=== PATIENT | male | born 1985 | race Caucasian/White ===

== ENCOUNTER 2020-06-23 14:16 | Outpatient (REF) | payer OTHER, SELFPAY | END 2020-06-23 14:17 | disposition home or self-care (01) | LOC: HO.LAB 14:16 | PROVIDERS: Visit Provider Internal Medicine | DX: Z20.828 Contact with and (suspected) exposure to other viral communicable diseases (principal) | CPT/HCPCS: C9803; U0003 ==

== ENCOUNTER 2020-07-09 12:30 | Emergency (ER) | payer OTHER, SELFPAY ==
[2020-07-09 12:35] VITALS: BP 119/66; PULSE 66; RESP 16; TEMP 36.7; O2SAT 98; BMI 27.8
[2020-07-09] MEDS: Lidocaine HCl 1 % MPF 5 ML VIAL SUBCUT (13:49)
--- NOTE | 2020-07-09 13:56 | ED_ITS ---
HPI - Male Genitourinary General Chief complaint: Urogenital-Male Stated complaint: recheck std,also ingrown hair Time Seen by Provider: 07/09/20 12:35 Source: patient Mode of arrival: ambulatory Limitations: no limitations History of Present Illness HPI Narrative: 34-year-old male presenting to the ED with complaints of ingrown hair for the past few weeks that he is unable to get out at the left groin area with an abscess. Patient also requesting to be tested for STDs although he denies any symptoms and denies any exposure to STDs. Denies any additional complaints or concerns at this time. Related Data Previous Rx's Medication Instructions Recorded cephalexin [Keflex] 500 mg PO Q6H 10 Days #40 cap 07/09/20 doxycycline monohydrate 100 mg PO BID 10 Days #20 cap 07/09/20 ibuprofen 800 mg PO Q8H PRN #14 tab 07/09/20 Allergies Allergy/AdvReac Type Severity Reaction Status Date / Time No Known Allergies Allergy Verified 07/09/20 12:38 [No Known Allergies*] Review of Systems Review of Systems: Constitutional : No Weight loss, No Fever, No Chills, No Night Sweats, No Fatigue, No Malaise ENT/Mouth : No Hearing loss, No Ear Pain, No Nasal Congestion, No Sinus Pain, No Hoarseness, No sore throat, No Rhinorrhea, No Swallowing Difficulty Eyes: No Eye Pain, No Swelling, No Redness, No Foreign Body, No Discharge, No Vision Changes Cardiovascular : No Chest Pain, No SOB, No Dyspnea on Exertion, No Orthopnea, No Edema, No Palpitations Respiratory : No Cough, No Sputum, No Wheezing, No Smoke Exposure, No Dyspnea Gastrointestinal : No Nausea, No Vomiting, No Diarrhea, No Constipation, No abdominal Pain, No Hematochezia, No Melena Genitourinary : no irregular bleeding, No Dysuria, No Urinary Frequency, No Hematuria, No Urinary Incontinence, No Urgency, No Flank Pain, No Urinary Flow Changes, No Hesitancy Musculoskeletal : No joint pain, No Myalgias, No Joint Swelling Skin : + ingrown hair/abscess, No Skin Lesions, No rash Neuro : No Weakness Yes all other systems are reviewed and are negative PMFSH Past Medical History Attestation statement: The following information was validated with the patient. Medical History Patient denies medical problems Social History Social History Advance Directives: No Advance Directives Information Provided: Yes Physical Exam Vital Signs: Vital Signs: Last Vital Signs Temp 98.0 F 07/09/20 12:35 Pulse 66 07/09/20 12:35 Resp 16 07/09/20 12:35 BP 119/66 07/09/20 12:35 Pulse Ox 98 07/09/20 12:35 Body Mass Index 27.8 vital signs have been reviewed as normal and appeared to be correct. Blood pressure normal. Heart rate normal. Respiration rate normal. Temperature normal. Oxygen saturation normal. Appearance: Alert. Oriented X3. No acute distress. Head: Normal external exam. Normocephalic. Atraumatic. Eyes: PERRLA. EOMI. Conjunctiva and sclera normal. Eyelids normal. ENT: Pharynx normal. Uvula midline. Moist mucous membranes. Neck: Normal inspection. Neck supple. FROM. No adenopathy. No meningeal signs. CVS: Normal heart rate and rhythm. Heart sound normal. No murmurs noted. Pulses normal throughout. Respiratory: No respiratory distress. Painless inspiration. Breath sounds normal. No wheezes/rales/rhonchi noted. Chest nontender. No accessory muscle usage noted or decreased air movement noted. Back: Full range of motion noted. Skin: To the left suprapubic groin area there is the 1 cm abscess possible ingrown hair with mild surrounding erythema no streaking or induration or foreign bodies noted at this time. No drainage noted. Skin warm and dry. Normal skin color. Normal skin turgor. No rashes/lacerations noted. Extremities: Extremities exhibit normal range of motion. Extremities nontender. Neuro: Oriented X 3. No motor deficit. No sensory deficit. Reflexes normal. Course Course Course Narrative: Patient now status post I&D of abscess/ingrown hair although mild bloody discharge no purulent discharge noted. No complications. Patient tolerated procedure well. Patient requesting to be tested for STDs therefore will test for gonorrhea/chlamydia and syphilis. He does not have any lesions therefore no indication to test for herpes. I instructed him to follow up with [facility] for any additional testing for HIV as they have proper follow-up. P atient reports that he does not have any symptoms and just wants to be tested to prove to his girlfriend that he does not have any STDs therefore no antibiotics for STDs given at this time. Will DC home with antibiotics for abscess/cellulitis and instructions to return if any new or worsening symptoms. Patient understands agrees the plan. Procedures Abscess I/D Side (if applicable): left Local Anesthetic: lidocaine 1% Amount of anesthesia used (mL): 3 Technique: needle aspiration and incised with blade Amount of fluid expressed (mL): 2 Sent for culture/gram staining?: No Irrigation: Yes Packing used?: none Complications: bleeding (pea size amounts) [facility] - Male Genitourinary Medical Records Attestation: I reviewed the patient's medical records. Discharge Plan Discharge Clinical Impression: Cellulitis, Abscess, Screen for STD (sexually transmitted disease) Patient Disposition: Home, Self-Care Instructions: Sexually Transmitted Diseases (ED), Male Condom Use (ED), Cellulitis (ED), Abscess (ED), Safe Sex Practices for Adolescents (ED) Prescriptions: New ibuprofen 800 mg tablet 800 mg PO Q8H PRN (Reason: pain) Qty: 14 RF: 0 doxycycline monohydrate 100 mg capsule 100 mg PO BID 10 Days Qty: 20 RF: 0 cephalexin [Keflex] 500 mg capsule 500 mg PO Q6H 10 Days Qty: 40 RF: 0 Referrals: Physician,Unknown [Primary Care Provider] - 2 days (your pcp) Print Language: Tamazight
[2020-07-10 10:46] LABS: CT PCR NOT DETECTED (Not Detect.); NG PCR NOT DETECTED (Not Detect.)
[2020-07-11 04:09] LABS: Syphilis Screen Nonreactive (Nonreactive)
== END 2020-07-09 14:11 | disposition home or self-care (01) ==
PROVIDERS: Physician Assistant Medical; Emergency Provider Internal Medicine
DX: L02.214 Cutaneous abscess of groin (principal); L03.314 Cellulitis of groin; Z20.2 Contact with and (suspected) exposure to infections with a predominantly sexual mode of transmission
CPT/HCPCS: 10060; 36415; 86780; 87491; 87591; 99283

== ENCOUNTER 2020-07-18 16:39 | Emergency (ER) | payer OTHER, SELFPAY ==
[2020-07-18 17:15] VITALS: BP 122/98; PULSE 79; RESP 18; TEMP 37.4; O2SAT 99; BMI 27.1
--- NOTE | 2020-07-18 17:43 | ED.NAVMDI ---
HPI - Nausea/Vomiting/Diarrhea General Chief complaint: Nausea/Vomiting/Diarrhea Stated complaint: Vomiting Time Seen by Provider: 07/18/20 17:43 Source: patient Mode of arrival: ambulatory Limitations: no limitations History of Present Illness HPI Narrative: 34 y/o male presenting with N/V/D for the last 1 week that occurs immediately after taking Keflex. He was prescribed it for an ingrown hair in his left groin. He also reports severe throat pain. No voice changes or difficulty handling his secretions. No abdominal pain. No fevers. MD elicited complaint: nausea, vomiting, diarrhea and other (sore thoat) Onset (ago): week(s) (1) Description of vomiting: food contents Description of diarrhea: semi-solid Associated nausea: Yes Associated abdominal pain: No Location of pain: none Severity: moderate Quality: cramping Exacerbating factors: medication Relieving factors: none Context: recent antibiotic use Associated symptoms: denies other symptoms Related Data Previous Rx's Medication Instructions Recorded cephalexin [Keflex] 500 mg PO Q6H 10 Days #40 cap 07/09/20 doxycycline monohydrate 100 mg PO BID 10 Days #20 cap 07/09/20 ibuprofen 800 mg PO Q8H PRN #14 tab 07/09/20 amoxicillin 500 mg PO BID #20 tab 07/18/20 ondansetron HCl [Zofran] 4 mg PO Q8H PRN #10 tab 07/18/20 Allergies Allergy/AdvReac Type Severity Reaction Status Date / Time No Known Allergies Allergy Verified 07/18/20 17:15 [No Known Allergies*] Review of Systems Review of Systems: Constitutional: No Fever, No Chills ENT/Mouth: + sore throat, No Rhinorrhea, No Swallowing Difficulty Cardiovascular: No Chest Pain, No SOB Respiratory: No Cough, No Sputum Gastrointestinal: + Nausea, + Vomiting, + Diarrhea, No abdominal Pain, No Hematochezia, No Melena Musculoskeletal: No joint pain, No Myalgias Neuro: No Weakness, No Numbness, No Dizziness, + Headache Heme/Lymph: No Lymphadenopathy Gastrointestinal: Gastrointestinal: Reports nausea PMFSH Past Medical History Medical History Patient denies medical problems Social History Social History Advance Directives: No Advance Directives Information Provided: No Physical Exam Vital Signs: Vital Signs: Last Vital Signs Temp 99.4 F 07/18/20 17:15 Pulse 79 07/18/20 17:15 Resp 18 07/18/20 17:15 BP 122/98 H 07/18/20 17:15 Pulse Ox 99 07/18/20 17:15 Body Mass Index 27.1 Appearance: Alert. Oriented X3. No acute distress. Eyes: normal inspection ENT: Pharynx with severe bilateral tonsillar swelling, erythema and exudates bilaterally. no appreciable peritonsillar abscess, handling secretions normally. voice normal. Neck: Normal inspection. Neck supple. CVS: Normal heart rate and rhythm. Pulses normal. Respiratory: No respiratory distress. Breath sounds normal. Skin: Skin warm and dry. Normal skin color. Normal skin turgor. No rashes. Neuro: Oriented X 3. Non-focal. Course Course Course Narrative: 34 y/o presenting with N/V/D after taking Keflex, now with more throat pain. Exam consistent with strep pharyngitis. Will treat accordingly. No peritontsillar abscess. Not septic appearing. Stable for discharge. Critical Care Time Critical Care Time Critical Care Time: No Discharge Plan Discharge Clinical Impression: Acute streptococcal pharyngitis Patient Disposition: Home, Self-Care Instructions: Strep Throat (ED) Additional Instructions: Your exam is consistent with Strep throat. Stop taking the Keflex medication given your intolerance to it. Start taking the new antibiotic that was sent to your pharmacy. If you develop diarrhea with this antibiotic, take Imodium as needed. Use warm salt water gargles several times per day. Use over the counter Chloraseptic [place] or Cepacol lozenges for sore throat. Take motrin and/or tylenol as needed for pain. Follow up with your doctor as needed. Prescriptions: New amoxicillin 500 mg tablet 500 mg PO BID Qty: 20 RF: 0 ondansetron HCl [Zofran] 4 mg tablet 4 mg PO Q8H PRN (Reason: nausea and vomiting) Qty: 10 RF: 0 No Action ibuprofen 800 mg tablet 800 mg PO Q8H PRN (Reason: pain) Qty: 14 RF: 0 doxycycline monohydrate 100 mg capsule 100 mg PO BID 10 Days Qty: 20 RF: 0 cephalexin [Keflex] 500 mg capsule 500 mg PO Q6H 10 Days Qty: 40 RF: 0 Stand Alone Forms: Work/School Release
== END 2020-07-18 18:07 | disposition home or self-care (01) ==
LOC: HO.ED 17:55
PROVIDERS: Emergency Provider Emergency Medicine
DX: J02.0 Streptococcal pharyngitis (principal)
CPT/HCPCS: 99283

== ENCOUNTER 2020-11-30 07:36 | Outpatient (REF) | payer OTHER, SELFPAY ==
--- NOTE | ~2020-11-30 | US_ITS ---
EXAMINATION: US ABDOMEN COMPLETE CLINICAL INFORMATION: Abdominal pain. Weight loss. COMPARISON: None TECHNIQUE: Real-time imaging of the abdominal viscera. FINDINGS: PANCREAS: The pancreas appears unremarkable, without masses or ductal dilatation, with the exception of the tail which is obscured by bowel gas. ABDOMINAL AORTA: The proximal and mid segments are normal in caliber. The distal aorta is obscured by bowel gas. INFERIOR VENA CAVA: Visualized portions are normal. LIVER: The liver is normal in size. The liver contour is normal. Parenchymal echogenicity is normal. No focal hepatic lesion. There is no intrahepatic biliary duct dilatation seen. GALLBLADDER: The gallbladder is physiologically distended without evidence of stones, sludge, polyps, wall thickening or pericholecystic fluid. COMMON BILE DUCT: Normal in caliber measuring 0.6 cm in diameter. RIGHT KIDNEY: No hydronephrosis. No renal calculi or focal parenchymal lesions. The kidney measures 10.8 cm in maximum dimension. Incidental note is made of the presence of 2 renal veins as well as 2 renal arteries. LEFT KIDNEY: Normal. No hydronephrosis. No renal calculi or focal parenchymal lesions. The kidney measures 11.0 cm in maximum dimension. SPLEEN: Normal. The spleen measures 9.3 cm in maximum dimension. FREE FLUID: None. US/US abdomen complete IMPRESSION: A cause for the patient's abdominal pain and weight loss is not seen. The pancreatic tail was not visualized.
== END 2020-11-30 07:37 | disposition home or self-care (01) ==
LOC: HO.US 07:36
PROVIDERS: PCP Internal Medicine Medical Oncology; Visit Provider Internal Medicine Medical Oncology
DX: R10.84 Generalized abdominal pain (principal); R63.4 Abnormal weight loss; K25.7 Chronic gastric ulcer without hemorrhage or perforation
CPT/HCPCS: 76700

== ENCOUNTER 2021-01-28 07:27 | Outpatient (REF) | payer OTHER, SELFPAY ==
[2021-01-28 08:20] LABS: MANUAL DIFF FLAG NO
[2021-01-28 08:26] LABS: Basophils Percent Auto 0.4 % (0-2); Eosinophils Absolute Auto 0.2 X10*3/uL (0.0-0.4); Eosinophils Percent Auto 3.8 % (0-4); Hematocrit 42.3 % (42-52); Hemoglobin 13.7 g/dl (14.0-18.0); Imm Gran Abs Auto 0.03 X10*3/uL (0.00-0.03); Imm Gran Pct Auto 0.6 % (0.0-0.4); Lymphocytes Absolute Auto 2.1 X10*3/uL (1.2-4.9); Mean Corpuscular HGB Conc 32.4 g/dl (31.0-36.0); Mean Corpuscular Hemoglobin 29.3 pg (27.0-33.0); Mean Corpuscular Volume 90.6 fL (80-98); Mean Platelet Volume 11.1 fL (9.4-12.4); Monocytes Absolute Auto 0.6 X10*3/uL (0.1-1.2); Monocytes Percent Auto 11.1 % (2-11); Neutrophils Absolute Auto 2.3 X10*3/uL (2.0-8.3); Neutrophils Percent Auto 44.1 % (45-73); Platelet Count 178 X10*3/uL (160-400); Red Blood Count 4.67 X10*6/uL (4.60-5.80); Red Cell Distribution Width 12.5 % (11.0-16.0); White Blood Count 5.2 X10*3/uL (4.8-10.8)
[2021-01-28 09:01] LABS: Alanine Aminotransferase 35 U/L (0-40); Albumin Level 4.3 g/dL (3.5-5.0); Alkaline Phosphatase 93 U/L (39-117); Anion Gap 10 (12-20); Aspartate Amino Transferase 22 U/L (5-37); Bilirubin Total 0.4 mg/dL (0.0-1.0); Blood Urea Nitrogen 15 mg/dL (9-16); Calcium 9.7 mg/dL (8.4-10.2); Carbon Dioxide 28 mmol/L (22-29); Chloride 105 mmol/L (96-108); Cholesterol 197 mg/dL; Estimated Glomerular Filt Rate > 60; Glucose Random 104 mg/dL (60-115); Potassium 4.1 mmol/L (3.3-5.1); Sodium 139 mmol/L (135-145); Total Protein 7.1 g/dL (6.5-8.0)
[2021-01-30 08:12] LABS: HBc Num1 0.07 S/CO (0.00-0.79); HBsAGNum1 0.17 S/CO (0.00-0.99); Hepatitis B Core Antibody Nonreactive (Nonreactive); Hepatitis B Surface Antigen Negative (Negative); ~HepC Num1 0.25 S/CO (0.00-0.79); ~Hepatitis C Antibody Nonreactive (Nonreactive)
[2021-01-30 08:28] LABS: HBS Num1 4.23 mIU/mL (0-7.99); ~Hepatitis B Surface Antibody NONREACTIVE (Nonreactive)
== END 2021-01-28 07:28 | disposition home or self-care (01) ==
LOC: HO.LAB 07:27
PROVIDERS: PCP Internal Medicine Medical Oncology; Visit Provider Family Medicine
DX: Z11.59 Encounter for screening for other viral diseases (principal); Z01.84 Encounter for antibody response examination; F11.20 Opioid dependence, uncomplicated
CPT/HCPCS: 36415; 80053; 82465; 85025; 86704; 86706; 86803; 87340

== ENCOUNTER 2022-01-12 09:22 | Outpatient (REF) | payer OTHER, SELFPAY ==
[2022-01-12 12:07] LABS: ~Hepatitis C Antibody Nonreactive (Nonreactive)
[2022-01-12 12:10] LABS: HBS Num1 2.36 mIU/mL (0-7.99); HBc Num1 0.14 S/CO (0.00-0.79); HIV AB/AG Nonreactive (Nonreactive); Hepatitis B Core Antibody Nonreactive (Nonreactive); ~Hepatitis B Surface Antibody NONREACTIVE (Nonreactive)
== END 2022-01-12 09:23 | disposition home or self-care (01) ==
LOC: HO.HMGCLDS 09:22
PROVIDERS: Visit Provider Family Medicine
DX: F11.20 Opioid dependence, uncomplicated (principal); Z11.3 Encounter for screening for infections with a predominantly sexual mode of transmission
CPT/HCPCS: 36415; 86704; 86706; 86803; 87389; 87902

== ENCOUNTER 2023-01-23 07:33 | Outpatient (REF) | payer OTHER, SELFPAY ==
[2023-01-23 08:01] LABS: MANUAL DIFF FLAG NO
[2023-01-23 08:32] LABS: Basophils Percent Auto 0.5 % (0-2); Eosinophils Absolute Auto 0.1 X10*3/uL (0.0-0.4); Eosinophils Percent Auto 1.9 % (0-4); Hematocrit 41.3 % (42.0-52.0); Hemoglobin 13.9 g/dl (14.0-18.0); Imm Gran Abs Auto 0.03 X10*3/uL (0.00-0.03); Imm Gran Pct Auto 0.5 % (0.0-0.4); Lymphocytes Absolute Auto 1.8 X10*3/uL (1.2-4.9); Lymphocytes Percent Auto 29.8 % (20-40); Mean Corpuscular HGB Conc 33.7 g/dl (31.0-36.0); Mean Corpuscular Hemoglobin 30.1 pg (27.0-33.0); Mean Corpuscular Volume 89.4 fL (80.0-98.0); Mean Platelet Volume 11.3 fL (9.4-12.4); Monocytes Absolute Auto 0.5 X10*3/uL (0.1-1.2); Monocytes Percent Auto 8.2 % (2-11); Neutrophils Absolute Auto 3.5 x10*3/uL (2.0-8.3); Neutrophils Percent Auto 59.1 % (45-73); Platelet Count 203 X10*3/uL (160-400); Red Blood Count 4.62 X10*6/uL (4.60-5.80); Red Cell Distribution Width 11.9 % (11.0-16.0); White Blood Count 5.9 X10*3/uL (4.8-10.8)
[2023-01-23 09:04] LABS: Alanine Aminotransferase 48 U/L (0-40); Albumin Level 4.3 g/dL (3.5-5.0); Alkaline Phosphatase 70 U/L (39-117); Anion Gap 10 (12-20); Aspartate Amino Transferase 34 U/L (5-37); Bilirubin Total 0.4 mg/dL (0.0-1.0); Blood Urea Nitrogen 13 mg/dL (9-16); Calcium 9.4 mg/dL (8.4-10.2); Carbon Dioxide 28 mmol/L (22-29); Chloride 104 mmol/L (96-108); Cholesterol 171 mg/dL; Estimated Glomerular Filt Rate > 60; Glucose Fasting 100 mg/dL (60-99); HDL Cholesterol 42 mg/dL; LDL Cholesterol Calculated 104 mg/dl; Potassium 4.2 mmol/L (3.3-5.1); Sodium 138 mmol/L (135-145); Total Protein 7.3 g/dL (6.5-8.0); Triglycerides 126 mg/dL
[2023-01-23 09:18] LABS: Prostate Specific Antigen 0.23 ng/mL (<0.05-4.0)
== END 2023-01-23 07:34 | disposition home or self-care (01) ==
LOC: HO.LAB 07:33
PROVIDERS: PCP Internal Medicine Medical Oncology; Visit Provider Internal Medicine Medical Oncology
DX: Z00.00 Encounter for general adult medical examination without abnormal findings (principal); Z12.5 Encounter for screening for malignant neoplasm of prostate; R10.84 Generalized abdominal pain; K21.9 Gastro-esophageal reflux disease without esophagitis
CPT/HCPCS: 36415; 80053; 80061; 84153; 85025

== ENCOUNTER 2023-04-26 15:55 | Outpatient (AMB) | payer OTHER, SELFPAY ==
--- NOTE | 2023-04-26 16:00 | MHC.OFFVIS ---
Intake Vital Signs 04/26/23 16:03 Height 5 ft 3 in Weight 158 lb 11.725 oz BMI 28.1 BP 97/53 L Blood Pressure Location Lt brachial Position Sitting Pulse 64 Intake Visit Reasons: Gastroesophageal reflux disease (GERD) Intake Note: Talha presents in the office as a new patient for GERD. CC: He gets pains in the stomach. He was told it was Ulcers. It went away and came back - he feels like it is always acid reflux. He gets pains to go to the bathroom and then it takes him a while to go to the . He drinks miralax every day. Allergies No Known Allergies [No Known Allergies*] Allergy (Verified 04/26/23 16:01) HPI HPI Comments History of Present Illness Details 37 y.o M with PMH of opiate use disorder on methadone maintenance, who is here for abdominal pain and acid reflux. Pt reports that he has had GI issues since his childhood and reports having xrays done for his abd and was told he had ulcers and was started on a medication for a few months. Does not report any endoscopy for this. Now for about a year and a half has been having burning epigastric pain which starts first thing in the morning. Pain gets better with eating. Also associated with severe cramping and urge to defecate but feels constipated and has to strain significantly. Takes miralax once daily and is able to go twice a day but burning pain is still persistent. Occ N,V. Was trialed on Zantac, prilosec and now on Nexium x 4 weeks. Despite this has to take TUMS. No frequent NSAID use. Smokes marijuana 6 joints a day. No etOH. 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 Hep serologies neg 12/2022. No fam hx stomach ca or liver disease. [facility] Medical History Patient denies medical problems Social History (Updated 04/26/23 @ 16:03 by ALISTAIR Worthington) Alcohol intake: current Alcohol intake frequency: does not drink Patient Tobacco Use Status: Never used Tobacco Use of substances other than those prescribed or required for medical reasons: Yes Substance Use Type: Marijuana Review of Systems Const All systems reviewed & are unremarkable except as noted in HPI and below Physical Exam Vital Signs: Last Vital Signs Pulse 64 04/26/23 16:03 BP 97/53 L 04/26/23 16:03 BMI result Body Mass Index 28.1 Gen appear: NAD HEENT: nonicteric, no cervical lymphadenopathy Chest: CTA CVS: Regular S1/S2 Abd: soft, nontender, nondistended, bowel sounds + Ext: no peripheral edema Neuro: A/Ox3, noted to move all extremities spontaneously Psych: interacting appropriately Assessment & Plan Assessment & Plan (1) Abdominal pain: Code(s): R10.9 - Unspecified abdominal pain Plan Reports primarily burning epigastric pain that gets better with food intake. Highly suspicious for PUD vs gastritis/duodenitis. Since on PPI, unable to check for H Pylori for now. No NSAID use at present. Other ddx include celiac, abnormal thyroid function, dyspepsia. plan: - labs ordered as below - increase nexium to 20mg once daily. pt reminded to take on empty stomach - egd to be booked - avoid nsaids Follow up after egd Orders: Orders Ferritin Today R10.9 - Unspecified abdominal pain Transglutaminase IgA Today R10.9 - Unspecified abdominal pain IRON PROFILE Today R10.9 - Unspecified abdominal pain TSH reflex Free T4 Today R10.9 - Unspecified abdominal pain Immunoglobulin A Today R10.9 - Unspecified abdominal pain Hemoglobin A1c Today R10.9 - Unspecified abdominal pain Liver Panel Today R10.9 - Unspecified abdominal pain Medications: New esomeprazole magnesium (Nexium) 20 mg PO DAILY 90 caps 0RF esomeprazole magnesium (Nexium) 20 mg PO DAILY 90 caps 0RF Discontinued ibuprofen Discontinued Reason: Doctor's Order 800 mg PO Q8H PRN 14 tabs 0RF pain Coding Level of Care Code New Pt Level 3 (85450) Diagnoses Abdominal pain R10.9
[2023-04-26 16:03] VITALS: BP 97/53; PULSE 64; BMI 28.1
== END 2023-04-26 16:32 | disposition home or self-care (01) ==
PROVIDERS: PCP Internal Medicine Medical Oncology; Visit Provider Internal Medicine
DX: R10.9 Unspecified abdominal pain (principal)
CPT/HCPCS: 99203

== ENCOUNTER → 2023-04-26 15:55 | Outpatient (BNVA) | payer OTHER, SELFPAY | PROVIDERS: PCP Internal Medicine Medical Oncology; Visit Provider Internal Medicine ==

== ENCOUNTER 2023-08-02 16:36 | Emergency (ER) | payer OTHER, SELFPAY ==
[2023-08-02 16:47] VITALS: BP 113/83; PULSE 65; RESP 18; TEMP 37.1; O2SAT 94; BMI 25.7
--- NOTE | 2023-08-02 16:51 | ED.GENADULT ---
HPI - General Adult General Chief complaint: Abdominal Pain Stated complaint: Abd pain Time Seen by Provider: 08/02/23 19:13 Source: patient Mode of arrival: ambulatory Limitations: no limitations History of Present Illness HPI narrative: 37-year-old male with no significant past medical history who presents emergency department for evaluation abdominal pain, acid taste in the back of his mouth with frequent burping, bloated sensation and occasional constipation times several month. His pain was not changed by hunger or by food. He has had occasional nausea and vomiting. He states that he has constipation but sometimes is regular he states that he has had a decreased appetite he is lost 3-5 lb over the last 1-2 months. He states that his symptoms got worse and his was concerned and insisted that he come to the emergency department today for evaluation. Related Data Home Medications Medication Instructions Recorded Confirmed cephalexin 500 mg capsule (Keflex) 500 mg PO Q6H 04/26/23 Previous Rx's Medication Instructions Recorded ondansetron HCl 4 mg tablet 4 mg PO Q8H PRN nausea and 07/18/20 (Zofran) vomiting #10 tabs esomeprazole magnesium 20 mg 20 mg PO DAILY #90 caps 04/26/23 capsule,delayed release (Nexium) aluminum hydrox-magnesium carb 254 10 ml PO QID PRN dyspepsia #355 mL 08/02/23 mg-237.5 mg/5 mL oral suspension (Gaviscon Extra Strength) omeprazole 20 mg capsule,delayed 20 mg PO DAILY 30 days #30 caps 08/02/23 release Allergies Allergy/AdvReac Type Severity Reaction Status Date / Time No Known Allergies Allergy Verified 08/02/23 16:53 [No Known Allergies*] Review of Systems Review of Systems: Yes all other systems are reviewed and are negative [facility] Past Medical History [facility] Narrative: Social history: Patient is . He denies tobacco and alcohol use. He states he smokes marijuana 6 times a day. Medical History Patient denies medical problems Social History Social History Alcohol intake: current Alcohol intake frequency: does not drink Patient Tobacco Use Status: Never used Tobacco Substance Use Type: Marijuana Advance Directives: No Advance Directives Information Provided: No Physical Exam ED Vital Signs: Vital Signs - 24 hr 08/02/23 16:47 08/02/23 19:25 08/02/23 19:43 Temperature 98.8 F 97.3 F 97.8 F Pulse Rate 65 60 56 Respiratory Rate 18 14 16 Blood Pressure 113/83 116/68 136/77 Pulse Oximetry 94 99 100 Oxygen Delivery Method Room Air Room Air Room Air BMI result Body Mass Index 25.7 Vital signs were normal Exam General: Awake, alert in no distress Head: Normocephalic, atraumatic EENT: PERRL, Lids normal, sclera normal, conjunctiva normal, nose normal , ears normal, throat without erythema or exudates Neck: Supple, no adenopathy Lung: breath sounds symmetric, no wheezing, rales or rhonchi Chest: symmetric movement, nontender Heart: regular rate and rhythm, normal S1, S2 no murmurs or rubs Abdomen: Distended soft, nondistended, normoactive bowel sounds, mild to moderate epigastric tenderness, negative Aguiar sign Back: no vertebral tenderness, no CVAT Extremities: no deformities, moves all extremities symmetrically Psych: Pleasant, cooperative Course Course Course Narrative: RME performed by Shey Ocasio PA-C. Patient is a 37 year old assigned male at presenting to the emergency department with abdominal pain, nausea, and vomiting. Detailed physical exam and review of systems are deferred to the district manager primary care sales. Labs ordered. Patient placed back in the waiting room pending room availability and results. Medical Decision Making Medical Decision Making [facility] Narrative: 37-year-old male with no significant past medical history who presents emergency department for evaluation abdominal pain, acid taste in the back of his mouth with frequent burping, bloated sensation and occasional constipation times several months. Patient's vital signs were normal, his exam did reveal mid epigastric tenderness otherwise was unremarkable. Differential diagnosis: Includes was not limited to peptic ulcer disease, gastritis, gastroesophageal reflux disease, biliary disease, IBS 20:18 My interpretation patient's laboratory evaluation is as follows: CBC was normal. CMP was normal. Patient's presentation, laboratory finding and examination are most consistent with GERD and constipation. Patient was g once a day for 1 month, extra-strength Gaviscon 10 mL 4 times a day as needed and Metamucil daily for 1 month He was given printed and verbal instructions and discharged home Differential Diagnosis Differential Diagnoses: The differential diagnosis associated with the presentation includes Admission/Observation Consideration of admission/observation: Escalation of care including admission/observation considered Lab Data MDM Lab Attestation statement: I reviewed the patient's lab results. 08/02/23 17:00 08/02/23 17:00 Labs: Lab Results 08/02/23 Range/Units 17:00 WBC 5.8 (4.8-10.8) X10*3/uL RBC 4.59 L (4.60-5.80) X10*6/uL Hgb 13.8 L (14.0-18.0) g/dl Hct 39.8 L (42.0-52.0) % MCV 86.7 (80.0-98.0) fL MCH 30.1 (27.0-33.0) pg MCHC 34.7 (31.0-36.0) g/dl RDW 11.9 (11.0-16.0) % Plt Count 201 (160-400) X10*3/uL MPV 11.3 (9.4-12.4) fL Immature Gran % (Auto) 0.2 (0.0-0.4) % Neut % (Auto) 51.1 (45-73) % Lymph % (Auto) 38.5 (20-40) % [place] % (Auto) 8.0 (2-11) % Eos % (Auto) 1.9 (0-4) % Baso % (Auto) 0.3 (0-2) % Lymph # (Auto) 2.2 (1.2-4.9) X10*3/uL [place] # (Auto) 0.5 (0.1-1.2) X10*3/uL Eos # (Auto) 0.1 (0.0-0.4) X10*3/uL Baso # (Auto) 0.0 (0.0-0.2) X10*3/uL Abs Immat Gran (auto) 0.01 (0.00-0.03) X10*3/uL Absolute Neuts (auto) 2.9 (2.0-8.3) x10*3/uL Absolute Nucleated RBC 0.000 (0.0-0.012) X10*3/uL Nucleated RBC % (auto) 0.0 (0.0-0.2) /100WBC Sodium 140 (135-145) mmol/L Potassium 4.0 (3.3-5.1) mmol/L Chloride 104 (96-108) mmol/L Carbon Dioxide 28 (22-29) mmol/L Anion Gap 12 (12-20) BUN 12 (9-16) mg/dL Creatinine 0.93 (0.5-1.4) mg/dL Estim Creat Clear Calc 90.1 Estimated GFR > 60 Random Glucose 96 (60-115) mg/dL Calcium 9.4 (8.4-10.2) mg/dL Magnesium 2.0 (1.6-2.6) mg/dL Total Bilirubin 0.6 (0.0-1.0) mg/dL AST 24 (5-37) U/L ALT 36 (0-40) U/L Alkaline Phosphatase 68 (39-117) U/L Total Protein 7.3 (6.5-8.0) g/dL Albumin 4.2 (3.5-5.0) g/dL Prescription Management I considered prescription management with: Other (H2 pippa-Prilosec, antacids Gaviscon) Discharge Plan Discharge Clinical Impression: GERD (gastroesophageal reflux disease) Patient Disposition: Home, Self-Care Instructions: Gastroesophageal Reflux Disease (ED) Additional Instructions: Your laboratory evaluation was normal this included a complete blood count and comprehensive metabolic panel. Your exam did reveal tenderness over your stomach area Your symptoms are consistent with too much acid in your stomach that is traveling up your a throat (esophageal) causing the bad taste your mouth. This is treated with medications that reduce the acid in your stomach and medications that help you move your bowels Take Prilosec (omeprazole) 20 mg pills, 1 pill once a day for 1 month. ?This medication shuts off your acid production and lets the inflammation in your stomach and esophagus heal. Take extra-strength Gaviscon 10 mL (2 tsp) 4 times a day as needed for abdominal pain. Take Metamucil 1 tsp in 8 oz of water in the morning for 1 month. This will help improve your abdominal pain and help with your constipation. Follow-up with your doctor in 2 days. Please return to the emergency department if your symptoms get worse or if you develop any symptoms that are concerning to you. Prescriptions: New Gaviscon Extra Strength 254-237.5 mg/5 mL suspension 10 ml PO QID PRN (Reason: dyspepsia) Qty: 355 0RF omeprazole 20 mg capsule,delayed release(DR/EC) 20 mg PO DAILY 30 Days Qty: 30 0RF No Action ondansetron HCl [Zofran] 4 mg tablet 4 mg PO Q8H PRN (Reason: nausea and vomiting) Qty: 10 0RF cephalexin [Keflex] 500 mg capsule 500 mg PO Q6H esomeprazole magnesium [Nexium] 20 mg capsule,delayed release(DR/EC) 20 mg PO DAILY Qty: 90 0RF
[2023-08-02 17:06] LABS: MANUAL DIFF FLAG NO
--- OUTSIDE RECORDS SUMMARY | 2023-08-02 17:07 | XMS_ITS | Patient Health Record ---
Author Name Unknown Organization Lazaro Jj III, MD Address [address] [place] [address] [address] [place] [address] Care Team Providers Care Product Picker Name Role Phone Lazaro Jj Primary Care Provider ALLERGIES No Known Allergies RESULTS Component Value Reference Range Notes Complete Blood Count Auto Di ff Reviewed date:01/24/2023 08:34:31 AM Interpretation: Performing Lab:[facility], [address] [place] [phone] Notes/Report: White Blood Count 5.9 4.8-10.8 X10*3/uL Red Blood Count 4.62 4.60-5.80 X10*6/uL Hemoglobin 13.9 14.0-18.0 g/dl Hematocrit 41.3 42.0-52.0 % Mean Corpuscular Volume 89.4 80.0-98.0 fL Mean Corpuscular Hemoglobin 30.1 27.0-33.0 pg Mean Corpuscular HGB Conc 33.7 31.0-36.0 g/dl Red Cell Distribution Width 11.9 11.0-16.0 % Platelet Count 203 160-400 X10*3/uL Mean Platelet Volume 11.3 9.4-12.4 fL Neutrophils Percent Auto 59.1 45-73 % Imm Gran Pct Auto 0.5 0.0-0.4 % Lymphocytes Percent Auto 29.8 20-40 % Monocytes Percent Auto 8.2 2-11 % Eosinophils Percent Auto 1.9 0-4 % Basophils Percent Auto 0.5 0-2 % NRBC Pct Auto 0.0 0.0-0.2 /100WBC Neutrophils Absolute Auto 3.5 2.0-8.3 x10*3/u L Imm Gran Abs Auto 0.03 0.00-0.03 X10*3/uL Lymphocytes Absolute Auto 1.8 1.2-4.9 X10*3/u L Monocytes Absolute Auto 0.5 0.1-1.2 X10*3/uL Eosinophils Absolute Auto 0.1 0.0-0.4 X10*3/u L Basophils Absolute Auto 0.0 0.0-0.2 X10*3/uL NRBC Abs Auto 0.000 0.0-0.012 X10*3/uL Comprehensive [place]. Panel Fa st Reviewed date:01/24/2023 08:34:47 AM Interpretation: Performing Lab:[facility], [address] [place] [phone] Notes/Report: Sodium 138 135-145 mmol/L Potassium 4.2 3.3-5.1 mmol/L Chloride 104 96-108 mmol/L Carbon Dioxide 28 22-29 mmol/L Anion Gap 10 12-20 Blood Urea Nitrogen 13 9-16 mg/dL Creatinine 0.86 0.5-1.4 mg/dL Estimated Glomerular Filt Rate > 60 NOTE: For -Irish individuals, multiply the result by 1.210. Chronic Kidney Disease: Estimated GFR < 60 mL/min/1.73m2 Severe Kidney Disease: Estimated GFR < 15 mL/min/1.73m2 Glucose Fasting 100 60-99 mg/dL A fasting glucose from 100-125 mg/dl is considered impaired (pre-diabetes). Calcium 9.4 8.4-10.2 mg/dL Bilirubin Total 0.4 0.0-1.0 mg/dL Aspartate Amino Transferase 34 5-37 U/L Alanine Aminotransferase 48 0-40 U/L Total Protein 7.3 6.5-8.0 g/dL Albumin Level 4.3 3.5-5.0 g/dL Alkaline Phosphatase 70 39-117 U/L Lipid Panel Reviewed date:01/24/2023 08:34:38 AM Interpretation: Performing Lab:[facility], [address] [place] [phone] Notes/Report: Triglycerides 126 Desirable Triglyceride: less than 150 mg/dL Borderline High Triglyceride 150-199 mg/dL High Triglyceride: 200-499 mg/dL Very High Triglyceride: greater than or equal to 5OO mg/dL Cholesterol 171 Desirable Cholesterol: less than 200 mg/dL Borderline High Cholesterol: 200-239 mg/dL High Cholesterol: greater than 239 mg/dL LDL Cholesterol Calculated 104 Desirable LDL: less than 100 mg/dL Near Optimal/Above Optimal LDL: 110-129 mg/dL Borderline High LDL: 130-159 mg/dL High LDL: 160-189 mg/dL Very High LDL: greater than or equal to 190 mg/dL HDL Cholesterol 42 Desirable HDL: greater than 40 mg/dL Note: This HDL assay may give artificially low results in patients with liver disease. Prostate Specific Antigen Reviewed date:01/24/2023 08:34:53 AM Interpretation: Performing Lab:[facility], [address] [place] [phone] Notes/Report: Prostate Specific Antigen 0.23 <0.05-4.0 ng/mL PSA methodology: Langston Alinity i Chemiluminescent Microparticle Immunoassay (CMIA) REASON FOR REFERRAL Reason Consult and Treat Diagnosis 1 Chronic GERD (K21.9) Diagnosis 2 Generalized abdomina l discomfort (R10.84) Referral Organization Lazaro Jj III, MD Referring Provider First Name Lazaro Referring Provider Last Name Анна Referring Provider Speciality Internal M edicine Referred Organization [facility] ntchristopher Referred Provider [facility], Gastroenterology Referred Address [address] [place] [address],[place], [place],[id number], Referred Provider Specialty Gastroentero logy General Notes Carly Tucker 12/05/2022 03:33:54 PM EDT > Faxed referral, Carly Tucker 12/13/2022 09:05:40 AM EDT > Left Message to [facility] checking the status of the referral., Carly Tucker 12/20/2022 03:13:12 PM EDT > As per [facility]astro they have not called the Pt yet to Schedule. They will upload the pts referral and call the patient to schedule.Garrett Melianet ASMA 12/31/2022 10:11:17 AM EDT > LM to call office with status of referral, Carly Tucker 01/08/2023 09:26:51 AM EDT > Office reached out to pt and no answer. Pt needs to call the Gastro office to schedule. Called pt and gave him the phone number to schedule for Gastroenterology. Pt is aware. Referral Priority Routine Reason Consult and Treat Chronic heart burn constipation Diagnosis 1 Chronic GERD (K21.9) Diagnosis 2 Generalized abdomina l discomfort (R10.84) Referral Organization Lazaro Jj III, MD Referring Provider First Name Lazaro Referring Provider Last Name Анна Referring Provider Speciality Internal M edicine Referred Provider Lazaro Jones Referred Provider Specialty Gastroentero logy General Notes Dipti Sutherland 2022 09:24:15 AM EDT > Faxed with progress noteBecky Suzanne CMA 04/01/2023 03:52:26 PM EDT > I called Dr Jones office pt has appt on 07/11/2022 at 10:20am pt made aware of this and told he can call that office to see if they can get him in sooner Referral Priority Routine Referral Appointment Date 07/11/2023 MEDICATIONS Medication SIG (Take, Route, Frequency, Duration) Notes Start Date End Date Status Omeprazole 10 MG 1 capsule 30 minutes before morning meal as needed Orally Once a day Active Fluticasone Furoate 27.5 MCG/SPRAY 2 sprays (1 spray in each nostril) Nasally Once a day 04/01/2023 Active Fluticasone Propionate 50 MCG/ACT 1 spray in each nostril Nasally Once a day for 30 day(s) 04/22/2023 Active SOCIAL HISTORY Tobacco Use: Social History Observation Description Date Details (start date - stop date) Never Smoker NA - NA Sex Assigned At : Social History Observation Description Sex Assigned At Male Tobacco Use/Smoking Question Answer Notes Patient is a nonsmoker Additional Findings: Tobacco Non-User Aggressive non-smoker Alcohol Screen Question Answer Notes Did you have a drink containing alcohol in the p ast year? No Points 0 Interpretation Negative PROBLEMS Problem Type ICD Code Onset Dates Problem Status W/U Status Risk SNOMED Code Notes Problem Chronic GERD (K21.9) Active confirmed 107554530 He will be referred to gastroenterology for definitive diagnosis and treatment of refractory GERD. His omeprazole was changed to 20 mg twice a day. Problem Generalized abdominal discomfort (R10.84) Active confirmed [id number] His symptoms a re very suggestive of chronic esophagitis or gastritis. I have recommended a GI consultation with endoscopy. Problem Acute non-recurrent maxillary sinusitis (J01.00) Active confirmed 40310810 He has complet ed the antibiotics and is improving. He was given a prescription for fluticasone nasal spray. VITAL SIGNS Heart Rate 72 /min 04/01/2023 Temperature 97.9 degrees Fahrenheit 04/01/2023 Blood pressure diastolic 60 mm Hg 04/01/2023 Height 62 in 04/01/2023 Blood pressure systolic 100 mm Hg 04/01/2023 Weight 159 lbs 04/01/2023 BMI 29.08 kg/m2 04/01/2023 Encounters Encounter Location Date Provider Diagnosis Lazaro Jj III, MD [address] [place] [address] [place] [phone] 11/29/2022 Lazaro Jj Chronic GERD K21.9 ; Annual physical exam Z00.00 and Generalized abdominal discomfort R10.84 Lazaro Jj III, MD [address] [place] [address] [place] [phone] 09/11/2022 Lazaro Jj III, MD [address] [place] [address] [place] [phone] 09/13/2022 Lazaro Jj III, MD [address] [place] [address] [place] [phone] 09/19/2022 Lazaro Jj III, MD [address] [place] [address] [place] [phone] 01/24/2023 Lazaro Jj III, MD [address] [place] [address] [place] [address] 02/01/2023 Lazaro Jj Chronic GERD K21.9 ; Generalized abdominal discomfort R10.84 and Overweight (BMI 25.0-29.9) E66.3 Lazaro Jj III, MD [address] [place] [address] [place] [phone] 03/14/2023 Lazaro Jj III, MD [address] [place] [address] [place] [phone] 04/01/2023 Lazaro Jj Generalized abdomina l discomfort R10.84 ; Chronic GERD K21.9 and Viral syndrome B34.9 Lazaro Jj III, MD [address] [place] [address] [place] [phone] 09/07/2022 Lazaro Jj III, MD [address] [place] [address] [place] [address] 07/12/2023 Lazaro Jj III, MD [address] [place] [address] [place] [address] 08/02/2023 Lazaro Jj III, MD [address] [place] [address] [place] [address] 04/15/2023 Lazaro Jj III, MD [address] [place] [address] [place] [address] 04/22/2023 Lazaro Jj Chronic GERD K21.9 ; Generalized abdominal discomfort R10.84 ; Overweight (BMI 25.0-29.9) E66.3 and Acute non-recurrent maxillary sinusitis J01.00 ASSESSMENTS Encounter Date Diagnosis Assessment Notes Treatment Notes Treatment Clinical Notes 11/29/2022 Annual physical exam (ICD-10 - Z00.00) Aside from the abdominal discomfort which is chronic. He seems healthy and well. It is noted that he has gained 30 pounds since his last visit. We discussed stabilizing his weight and maintaining it in the middle of the normal range. We have discussed the elements of a healthy Mediterranean diet. Comprehensive blood work has been ordered. 11/29/2022 Chronic GERD (ICD-10 - K21.9) He will be referred to gastroenterology for definitive diagnosis and treatment of refractory GERD. His omeprazole was changed to 20 mg twice a day. 02/01/2023 Chronic GERD (ICD-10 - K21.9) He will be referred to gastroenterology for definitive diagnosis and treatment of refractory GERD. His omeprazole was changed to 20 mg twice a day. 02/01/2023 Generalized abdominal discomfort (ICD-10 - R10.84) His symptoms are very suggestive of chronic esophagitis or gastritis. I have recommended a GI consultation with endoscopy. 04/01/2023 Chronic GERD (ICD-10 - K21.9) He will be referred to gastroenterology for definitive diagnosis and treatment of refractory GERD. His omeprazole was changed to 20 mg twice a day. 04/01/2023 Generalized abdominal discomfort (ICD-10 - R10.84) His symptoms are very suggestive of chronic esophagitis or gastritis. I have recommended a GI consultation with endoscopy. 04/22/2023 Chronic GERD (ICD-10 - K21.9) He will be referred to gastroenterology for definitive diagnosis and treatment of refractory GERD. His omeprazole was changed to 20 mg twice a day. 04/22/2023 Generalized abdominal discomfort (ICD-10 - R10.84) His symptoms are very suggestive of chronic esophagitis or gastritis. I have recommended a GI consultation with endoscopy. 11/29/2022 Generalized abdominal discomfort (ICD-10 - R10.84) His symptoms are very suggestive of chronic esophagitis or gastritis. I have recommended a GI consultation with endoscopy. 02/01/2023 Overweight (BMI 25.0-29.9) (ICD-10 - E66.3) His body mass index is 29. He will make no change in his diet at this time. In the near future when his reflux is controlled. He will try to lose weight at a rate of one half of a pound per week through her diet restricted in fat calories and sodium. 04/01/2023 Viral syndrome (ICD-10 - B34.9) Use decongestants and antitussives. If he worsens, he will call me at once. Will retest for pendleton virus in 48 hours. 04/22/2023 Overweight (BMI 25.0-29.9) (ICD-10 - E66.3) We have discussed weight loss strategies today. We made a plan to lose weight at a rate of one half of a pound per week. 04/22/2023 Acute non-recurrent maxillary sinusitis (ICD-10 - J01.00) He has completed the antibiotics and is improving. He was given a prescription for fluticasone nasal spray. PLAN OF TREATMENT Pending Test Test Name Order Date PROFILE, FASTING (COMPREHENSIVE METABOLI C) 11/29/2022 PROFILE, FASTING (COMPREHENSIVE METABOLI C) 01/27/2021 PROFILE, RANDOM (COMPREHENSIVE METABOLIC ) 11/08/2020 LIPID PANEL 11/29/2022 LIPID PANEL 01/27/2021 LIPID PANEL 11/08/2020 FREE T4 (FT4) 01/27/2021 TSH (THYROID STIMULATING HORMONE) 2020 PSA, TOTAL 11/29/2022 CBC w DIFF 11/08/2020 CBC w DIFF 11/29/2022 CBC w DIFF 01/27/2021 SED RATE (ESR) 11/08/2020 US ABD 11/08/2020 Next Appt Details Provider Name:Lazaro Jj, 08/09/2023 11:30:00 AM, [address] [facility] [address], [place], [phone], Provider Name:Lzaaro Jj, 12/03/2023 10:00:00 AM, [address] [facility] [address], [place], [address], Insurance Providers Payer Name Payer Address Payer Phone Subscriber Number Group Number Insured Name Patient Relationship to Insured Coverage Start Date Coverage End Date [employer] [address] [place] [address] [id number] Talha Mccoy Self - patient is the insured MEDICAL (GENERAL) HISTORY Medical History History ICD Code childhood ulcers heartburn dyspepsia fracture right wrist covid19 infection September 2020 Surgical History Surgery Date(Month/Year) fracture right wrist, casted
[2023-08-02 17:10] LABS: Basophils Percent Auto 0.3 % (0-2); Eosinophils Absolute Auto 0.1 X10*3/uL (0.0-0.4); Eosinophils Percent Auto 1.9 % (0-4); Hematocrit 39.8 % (42.0-52.0); Hemoglobin 13.8 g/dl (14.0-18.0); Imm Gran Abs Auto 0.01 X10*3/uL (0.00-0.03); Imm Gran Pct Auto 0.2 % (0.0-0.4); Lymphocytes Absolute Auto 2.2 X10*3/uL (1.2-4.9); Lymphocytes Percent Auto 38.5 % (20-40); Mean Corpuscular HGB Conc 34.7 g/dl (31.0-36.0); Mean Corpuscular Hemoglobin 30.1 pg (27.0-33.0); Mean Corpuscular Volume 86.7 fL (80.0-98.0); Mean Platelet Volume 11.3 fL (9.4-12.4); Monocytes Absolute Auto 0.5 X10*3/uL (0.1-1.2); Neutrophils Absolute Auto 2.9 x10*3/uL (2.0-8.3); Neutrophils Percent Auto 51.1 % (45-73); Platelet Count 201 X10*3/uL (160-400); Red Blood Count 4.59 X10*6/uL (4.60-5.80); Red Cell Distribution Width 11.9 % (11.0-16.0); White Blood Count 5.8 X10*3/uL (4.8-10.8)
[2023-08-02 17:20] LABS: Alanine Aminotransferase 36 U/L (0-40); Albumin Level 4.2 g/dL (3.5-5.0); Alkaline Phosphatase 68 U/L (39-117); Anion Gap 12 (12-20); Aspartate Amino Transferase 24 U/L (5-37); Bilirubin Total 0.6 mg/dL (0.0-1.0); Blood Urea Nitrogen 12 mg/dL (9-16); Calcium 9.4 mg/dL (8.4-10.2); Carbon Dioxide 28 mmol/L (22-29); Chloride 104 mmol/L (96-108); Creatinine Clr Calc Pharmacy 90.1; Estimated Glomerular Filt Rate > 60; Glucose Random 96 mg/dL (60-115); Sodium 140 mmol/L (135-145); Total Protein 7.3 g/dL (6.5-8.0)
[2023-08-02 19:25] VITALS: BP 116/68; PULSE 60; RESP 14; TEMP 36.3; O2SAT 99
[2023-08-02 19:43] VITALS: BP 136/77; PULSE 56; RESP 16; TEMP 36.6; O2SAT 100
--- NOTE | 2023-08-02 19:56 | MHC.EDTECH ---
This Tech assumed care of this PT upon arrival. pt changed into a hospital gown
== END 2023-08-03 12:00 | disposition home or self-care (01) ==
PROVIDERS: Physician Assistant Medical; Emergency Provider Emergency Medicine Emergency Medical Services; PCP Internal Medicine Medical Oncology
DX: K21.9 Gastro-esophageal reflux disease without esophagitis (principal); R10.9 Unspecified abdominal pain; K59.00 Constipation, unspecified; Z79.899 Other long term (current) drug therapy
CPT/HCPCS: 36415; 80053; 83735; 85025; 99283; 99284

== ENCOUNTER 2023-08-09 12:18 | Outpatient (REF) | payer OTHER, SELFPAY | END 2023-08-09 12:19 | disposition home or self-care (01) | LOC: HO.LAB 12:18 | PROVIDERS: PCP Internal Medicine Medical Oncology; Visit Provider Internal Medicine Medical Oncology | DX: Z13.89 Encounter for screening for other disorder (principal) ==

== ENCOUNTER 2023-08-11 | Outpatient (REF) | payer OTHER, SELFPAY ==
[2023-08-12 11:09] LABS: CDiff Gene PCR NEGATIVE (Negative)
[2023-08-12 14:21] LABS: Adenovirus F 40/41 Not Detected (Not Detect.); Astrovirus Not Detected (Not Detect.); Campylobacter Not Detected (Not Detect.); Cryptosporidium Not Detected (Not Detect.); Cyclospora cayetanensis Not Detected (Not Detect.); E. coli EAEC Not Detected (Not Detect.); E. coli EPEC Not Detected (Not Detect.); E. coli ETEC Not Detected (Not Detect.); E. coli STEC Not Detected (Not Detect.); Entamoeba histolytica Not Detected (Not Detect.); Giardia lamblia Not Detected (Not Detect.); Norovirus GI/GII Not Detected (Not Detect.); Plesiomonas shigelloides Not Detected (Not Detect.); Rotavirus A Not Detected (Not Detect.); Salmonella Not Detected (Not Detect.); Sapovirus Not Detected (Not Detect.); Shigella sp./EIEC Not Detected (Not Detect.); Vibrio Not Detected (Not Detect.); Vibrio Cholerae Not Detected (Not Detect.); Yersinia enterocolitica Not Detected (Not Detect.)
== END 2023-08-11 00:01 | disposition home or self-care (01) ==
LOC: HO.LNP
PROVIDERS: Visit Provider Internal Medicine Medical Oncology
DX: R10.84 Generalized abdominal pain (principal); K21.9 Gastro-esophageal reflux disease without esophagitis; K59.00 Constipation, unspecified
CPT/HCPCS: 87177; 87209; 87338; 87493; 87507

== ENCOUNTER 2023-08-22 11:59 | Day surgery (SDC) | payer OTHER, SELFPAY ==
[2023-08-20 14:29] VITALS: BMI 28.2
--- NOTE | 2023-08-21 10:55 | HO.ANESPROP2 ---
Documented by User: Marina Branch NP 08/21/23 10:56 HPI - Anesthesia Eval Consult details Narrative: 37yo M for Upper Endoscopy Methadone daily for hx [facility] Active Problems Active Problems: All Active Problems (Updated 08/20/23 @ 14:29 by Vanessa Gonzalez RN) Abdominal pain (Acute) Past Medical History Medical History (Updated 08/20/23 @ 14:29 by Vanessa Gonzalez RN) Opiate dependence GERD (gastroesophageal reflux disease) Surgical History Surgical History (Updated 08/22/23 @ 12:48 by Mariela Ram RN) Hx of tooth extraction Surgical history unknown Social History Social History Alcohol intake: current Alcohol intake frequency: does not drink Patient Tobacco Use Status: Never used Tobacco Substance Use Type: Marijuana Advance Directives: No Advance Directives Information Provided: Yes Meds Allergies Allergy/AdvReac Type Severity Reaction Status Date / Time No Known Allergies Allergy Verified 08/22/23 12:48 [No Known Allergies*] Home Medications Medication Instructions Recorded Confirmed Last Taken Type methadone 10 mg/5 mL oral solution mg 08/20/23 08/20/23 Unknown History metoclopramide HCl 10 mg tablet 10 mg PO QID 08/22/23 08/22/23 Unknown History Exam Height,Weight and Vital Signs: Height 5 ft 3 in Weight 72.121 kg Pertinent Lab Results Pertinent Lab Results: Laboratory Tests 08/02/23 17:00 WBC 5.8 Hgb 13.8 L Hct 39.8 L Plt Count 201 Sodium 140 Potassium 4.0 Chloride 104 Carbon Dioxide 28 BUN 12 Creatinine 0.93 Assessment and Plan Assessment Anesthesia Assessment: Chart Reviewed Documented by User: Doc Vaca MD 08/22/23 13:01 PMFSH Past Medical History Medical History (Updated 08/20/23 @ 14:29 by Vanessa Gonzalez RN) Opiate dependence GERD (gastroesophageal reflux disease) Functional capacity: independent ambulation Family History Family history of problems with anesthesia: No Surgical History Surgical History (Updated 08/22/23 @ 12:48 by Mariela Ram RN) Hx of tooth extraction Surgical history unknown History of Problems with Anesthesia: No Social History Social History Alcohol intake: current Alcohol intake frequency: does not drink Patient Tobacco Use Status: Never used Tobacco Substance Use Type: Marijuana Advance Directives: No Advance Directives Information Provided: Yes Meds Allergies Allergy/AdvReac Type Severity Reaction Status Date / Time No Known Allergies Allergy Verified 08/22/23 12:48 [No Known Allergies*] Home Medications Medication Instructions Recorded Confirmed Last Taken Type methadone 10 mg/5 mL oral solution mg 08/20/23 08/20/23 Unknown History metoclopramide HCl 10 mg tablet 10 mg PO QID 08/22/23 08/22/23 Unknown History Exam Airway Mallampati Class: I TM Dist: >3cm Neck ROM: Full Loose/Missing/Broken Teeth: No and Upper (number 8 chipped) Heart: rrr Lungs: cta b/l Assessment and Plan Assessment Anesthesia Assessment: Anesthesia Plan Discussed Final Anesthetic Review Family History of Problems with Anesthesia: No History of Problems with Anesthesia: No NPO: Yes ASA Class: II Final Preanesthetic Review: No Changes in Pt Med Stat, Meds/Allgs Chart Reviewed, Consent Obtained/Reviewed and Anes Risks/Benef Reviewed Patient Risk: Intermediate Procedure Risk: Intermediate Anesthetic Plan Anesthetic Plan: MAC: Disposition: Standard PACU
[2023-08-22 12:48] VITALS: BMI 27.7
[2023-08-22 13:04] VITALS: BP 97/58; PULSE 52; RESP 15; TEMP 36.3; O2SAT 98
[2023-08-22] MEDS: Lactated Ringers 1,000 ML 100 ML IVCONT (13:12)
--- NOTE | 2023-08-22 13:25 | P.HPSUR_ITS ---
Pre-Procedural Eval Section A - 24 Hr Update-Section A only Date of Service: 08/22/23 Section B - Complete if H&P > 30 days Chief Complaint: Unspecified abdominal pain Relevant Family History (Specify if Yes): No Relevant Social History: Other (specify) (thc) Present Medications: see Short Stay Collaborative assessment Medical History: Significant History (Opiate dependence GERD (gastroesophageal reflux disease)) History of Previous Operations: Relevant previous surgery/procedure and date(s) ( Hx of tooth extraction) Allergies: Allergies Allergy/AdvReac Type Severity Reaction Status Date / Time No Known Allergies Allergy Verified 08/22/23 12:48 [No Known Allergies*] Review of Systems Sugical H&P ROS: Negative: Constitution, Cardiovascular, Respiratory, Neurological, Psychiatric, Hem-Onc, Allergic/Immunologic, Gastrointestinal, Genitourinary, Musculoskeletal, Integumentary, Endocrine and Eyes/Ears/Nose/Throat Exam Surgical H&P Exam: Normal: HEENT, Normal: Heart, Normal: Lungs, Normal: Extr emities, Normal: Abdomen, Normal: Skin and Normal: Neurological Plan Diagnosis/Plan: Unchanged I have reviewed the history and physical and performed a pertinent physical examination on my patient. No changes have occurred unless specified. Time Spent With Patient Time: Total time managing care of this patient today ____ minutes.
--- NOTE | 2023-08-22 13:31 | W.PM.OPN ---
Operative Note Operative Note Date of Service: 08/22/23 Narrative: Procedure Description: EGD Indication: GERD, better now with PPI Anesthesia: MAC FLEXIBLE TRANSORAL UPPER GASTROINTESTINAL ENDOSCOPY UPPER ENDOSCOPY Consent: Indications for the procedure and potential complications of bleeding, perforation, reaction to medications and missed diagnosis were discussed with the patient and informed consent was obtained. Instrument: Olympus GIF H 190 J mid size upper endoscope Monitoring: Vital signs and clinical assessment, continuous EKG monitoring, Pulse oximetry, Carbon Dioxide monitoring and blood pressure monitoring were done throughout the procedure. Procedure: The patient was placed in the left lateral decubitis position and pre-procedure medications were administered and a bite block was placed. The endoscope was inserted into the mouth and advanced under direct vision to the third part of duodenum. A careful inspection was made as the upper endoscope was withdrawn including a retroflexed examination of the proximal stomach; Findings and interventions are described below. Findings: Larynx:normal Esophagus: GE junction at 38 cm, diaphragm hiatus at 38 cm, bx taken from GEJ, distal esophagus Stomach: Patchy gastric erythema with small amount of residual food debris noted. Biopsies were obtained. Grade 2 flap valve on retroflexed examination of the cardia. 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
[2023-08-22 14:01] VITALS: BP 96/58; PULSE 53; RESP 16; TEMP 36.1; O2SAT 98
[2023-08-22 14:16] VITALS: BP 92/59; PULSE 48; RESP 16; O2SAT 96
[2023-08-22 14:31] VITALS: BP 110/65; PULSE 49; RESP 16; TEMP 36.1; O2SAT 96
== END 2023-08-22 15:03 | disposition home or self-care (01) ==
PROVIDERS: PCP Internal Medicine Medical Oncology; Visit Provider Internal Medicine Gastroenterology
PROC: 0DJ08ZZ Inspection of Upper Intestinal Tract, Via Natural or Artificial Opening Endoscopic (ICD-10-PCS; CPT 43235; principal; 2023-08-22 14:00)
DX: R10.9 Unspecified abdominal pain (principal); K31.1 Adult hypertrophic pyloric stenosis; K21.9 Gastro-esophageal reflux disease without esophagitis; K44.9 Diaphragmatic hernia without obstruction or gangrene; F11.20 Opioid dependence, uncomplicated; Z79.899 Other long term (current) drug therapy
CPT/HCPCS: 43245; 43239; 88305; 88313; 88342; C1726; J1596; J2704

== ENCOUNTER → 2023-08-22 11:59 | Outpatient (BNV) | payer OTHER, SELFPAY | PROVIDERS: PCP Internal Medicine Medical Oncology; Visit Provider Internal Medicine Gastroenterology | DX: K31.1 Adult hypertrophic pyloric stenosis (principal); K31.89 Other diseases of stomach and duodenum | CPT/HCPCS: 43239; 43249 ==

== ENCOUNTER 2023-09-04 09:13 | Outpatient (AMB) | payer OTHER, SELFPAY ==
--- NOTE | 2023-09-04 09:16 | MHC.OFFVIS ---
Intake Vital Signs 09/04/23 09:18 Weight 156 lb 8.451 oz BP 102/57 L Blood Pressure Location Lt brachial Position Sitting Pulse 58 Intake Visit Reasons: S/P EGD; Dr. Hebert Intake Note: Talha presents in the office as a follow up EGD. CC: So far so good no concerns. Milk gives him the burps but they have been good since. Urologic Surgeon Required: No Allergies No Known Allergies [No Known Allergies*] Allergy (Verified 09/04/23 09:19) HPI HPI Comments History of Present Illness Details 37 y.o M with PMH of opiate use disorder on methadone maintenance, who is here for abdominal pain and acid reflux. 04/26/23: Pt reports that he has had GI issues since his childhood and reports having xrays done for his abd and was told he had ulcers and was started on a medication for a few months. Does not report any endoscopy for this. Now for about a year and a half has been having burning epigastric pain which starts first thing in the morning. Pain gets better with eating. Also associated with severe cramping and urge to defecate but feels constipated and has to strain significantly. Takes miralax once daily and is able to go twice a day but burning pain is still persistent. Occ N,V. Was trialed on Zantac, prilosec and now on Nexium x 4 weeks. Despite this has to take TUMS. No frequent NSAID use. Smokes marijuana 6 joints a day. No etOH. 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 Hep serologies neg 12/2022. No fam hx stomach ca or liver disease. EGD 08/22/23: Larynx:normal Esophagus: GE junction at 38 cm, diaphragm hiatus at 38 cm, bx taken from GEJ, distal esophagus Stomach: Patchy gastric erythema with small amount of residual food debris noted. Biopsies were obtained. Grade 2 flap valve on retroflexed examination of the cardia. 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 Stomach, biopsy: Antral-type mucosa with mild chronic inactive inflammation; no Helicobacter organisms seen. B. GE junction, biopsy: - Cardiofundic-type mucosa with mild chronic inactive inflammation; no intestinal metaplasia seen. - No squamous epithelium seen. C. Esophagus, distal, biopsy: Squamous epithelium within normal limits; no inflammation seen. 09/04/23: Here for post-EGD visit. 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 Reports improvement in cramping and bloating sx since EGD with pyloric dilation. Had stopped taking miralax and now constipation worse. Not getting better with just taking metamucil. [facility] Medical History (Updated 09/04/23 @ 12:16 by Savannah Pavon MD) Opiate dependence GERD (gastroesophageal reflux disease) Surgical History (Updated 09/04/23 @ 09:17 by ALISTAIR Worthington) History of esophagogastroduodenoscopy (EGD) Hx of tooth extraction Surgical history unknown Social History Alcohol intake: current Alcohol intake frequency: does not drink Patient Tobacco Use Status: Never used Tobacco Substance Use Type: Marijuana Review of Systems Const All systems reviewed & are unremarkable except as noted in HPI and below Physical Exam Vital Signs: Last Vital Signs Pulse 58 09/04/23 09:18 BP 102/57 L 09/04/23 09:18 Const General: intoxicated appearing Resp Effort & Inspection: normal respiratory effort GI Inspection: Yes normal to inspection Assessment & Plan Assessment & Plan (1) Abdominal pain: Code(s): R10.9 - Unspecified abdominal pain (2) Constipation: Code(s): K59.00 - Constipation, unspecified Plan No evidence of esophagitis or gastritis. HP negative on EGD. Abd discomfort better after pyloric dilation ? prev ulcer. In terms of constipation, likely due to methadone use. Recommend senna daily in AM with addition of miralax PRN Cont fiber supplement and adequate water intake. Follow up 6 months Coding Level of Care Code Est Pt Level 3 (10579) Diagnoses Abdominal pain R10.9 Constipation K59.00
[2023-09-04 09:18] VITALS: BP 102/57; PULSE 58
== END 2023-09-04 09:44 | disposition home or self-care (01) ==
PROVIDERS: PCP Internal Medicine Medical Oncology; Visit Provider Internal Medicine
DX: R10.9 Unspecified abdominal pain (principal); K59.00 Constipation, unspecified
CPT/HCPCS: 99213

== ENCOUNTER → 2023-09-04 09:13 | Outpatient (BNVA) | payer OTHER, SELFPAY | PROVIDERS: PCP Internal Medicine Medical Oncology; Visit Provider Internal Medicine ==

== ENCOUNTER 2023-09-30 11:54 | Outpatient (AMB) | payer OTHER, SELFPAY ==
[2023-09-30 12:04] VITALS: BP 112/65; PULSE 60; BMI 28.0
--- NOTE | 2023-09-30 12:04 | MHC.OFFVIS ---
Intake Vital Signs 09/30/23 12:04 Height 5 ft 3 in Weight 157 lb 13.616 oz BMI 28.0 BP 112/65 Blood Pressure Location Rt brachial Position Sitting Pulse 60 Intake Visit Reasons: gerd Intake Note: Talha presents in the office as a follow up EGD. CC: Patient reports that he feels bloated, a lot of nasty burping , diarrhea, and abdominal pain. He states he is like that for about 5 days gets better, and then starts having symptoms again. 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 04/26/23: Pt reports that he has had GI issues since his childhood and reports having xrays done for his abd and was told he had ulcers and was started on a medication for a few months. Does not report any endoscopy for this. Now for about a year and a half has been having burning epigastric pain which starts first thing in the morning. Pain gets better with eating. Also associated with severe cramping and urge to defecate but feels constipated and has to strain significantly. Takes miralax once daily and is able to go twice a day but burning pain is still persistent. Occ N,V. Was trialed on Zantac, prilosec and now on Nexium x 4 weeks. Despite this has to take TUMS. No frequent NSAID use. Smokes marijuana 6 joints a day. No etOH. 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 Hep serologies neg 12/2022. No fam hx stomach ca or liver disease. EGD 08/22/23: Larynx:normal Esophagus: GE junction at 38 cm, diaphragm hiatus at 38 cm, bx taken from GEJ, distal esophagus Stomach: Patchy gastric erythema with small amount of residual food debris noted. Biopsies were obtained. Grade 2 flap valve on retroflexed examination of the cardia. 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 Stomach, biopsy: Antral-type mucosa with mild chronic inactive inflammation; no Helicobacter organisms seen. B. GE junction, biopsy: - Cardiofundic-type mucosa with mild chronic inactive inflammation; no intestinal metaplasia seen. - No squamous epithelium seen. C. Esophagus, distal, biopsy: Squamous epithelium within normal limits; no inflammation seen. 09/04/23: Here for post-EGD visit. 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 Reports improvement in cramping and bloating sx since EGD with pyloric dilation. Had stopped taking miralax and now constipation worse. Not getting better with just taking metamucil. 09/30/23: Req this appt as continues to have epigastric discomfort pam after eating with considerable borborygmi. BMs have started to fluctuate now has diarrhea whereas prev constipated. No blood in stool. Weight curve stable. [facility] Medical History Opiate dependence GERD (gastroesophageal reflux disease) Surgical History History of esophagogastroduodenoscopy (EGD) Hx of tooth extraction Surgical history unknown Social History Alcohol intake: current Alcohol intake frequency: does not drink Patient Tobacco Use Status: Never used Tobacco Substance Use Type: Marijuana Review of Systems Const All systems reviewed & are unremarkable except as noted in HPI and below Physical Exam Vital Signs: Last Vital Signs Pulse 60 09/30/23 12:04 BP 112/65 09/30/23 12:04 BMI result Body Mass Index 28.0 Appears lethargic, accompanied by Sylvia Nonicteric abd soft, nondistended A/Ox3 norm gait Assessment & Plan Assessment & Plan (1) Abdominal pain: Code(s): R10.9 - Unspecified abdominal pain (2) Change in bowel habit: Code(s): R19.4 - Change in bowel habit Plan Here for change in bowel habits and worsening abd pain. Sx mostly post-prandial. Also reports eggy burps ? GERD. EGD suggestive of delayed gastric emptying. Pt does not report considerable response to pyloric dil. Plan: - Check A1c and TSH to r/o metabolic causes of delayed gastric emptying noted on EGD - Labs ordered to r/o IBD - Celiac serology - UGIS ordered - INCREASE Omeprazole to 20 BID Follow up 4 weeks Orders: Orders Transglutaminase IgA Today R10.9 - Unspecified abdominal pain, R19.4 - Change in bowel habit Hemoglobin A1c Today R10.9 - Unspecified abdominal pain, R19.4 - Change in bowel habit FL upper GI series Today R10.9 - Unspecified abdominal pain C Reactive Protein Today R10.9 - Unspecified abdominal pain, R19.4 - Change in bowel habit Ferritin Today R10.9 - Unspecified abdominal pain, R19.4 - Change in bowel habit IRON PROFILE Today R10.9 - Unspecified abdominal pain, R19.4 - Change in bowel habit Calprotectin, Fecal Today R10.9 - Unspecified abdominal pain, R19.4 - Change in bowel habit Immunoglobulin A Today R10.9 - Unspecified abdominal pain, R19.4 - Change in bowel habit TSH reflex Free T4 Today R10.9 - Unspecified abdominal pain, R19.4 - Change in bowel habit Medications: Changed From omeprazole 20 mg PO DAILY 30 days 30 caps 0RF To omeprazole 20 mg PO BID 60 caps 2RF 30 days Coding Level of Care Code Est Pt Level 4 (14083) Diagnoses Abdominal pain R10.9 Change in bowel habit R19.4
== END 2023-09-30 14:04 | disposition home or self-care (01) ==
PROVIDERS: PCP Internal Medicine Medical Oncology; Visit Provider Internal Medicine
DX: R10.9 Unspecified abdominal pain (principal); R19.4 Change in bowel habit
CPT/HCPCS: 99214

== ENCOUNTER 2023-09-30 11:54 | Outpatient (REF) | payer OTHER, SELFPAY ==
[2023-09-30 13:53] LABS: Estimated Average Glucose 108 mg/dL; Hemoglobin A1c % 5.4 % (<6.0)
[2023-09-30 14:28] LABS: Alanine Aminotransferase 60 U/L (0-40); Albumin Level 4.3 g/dL (3.5-5.0); Alkaline Phosphatase 75 U/L (39-117); Aspartate Amino Transferase 37 U/L (5-37); Bilirubin Direct 0.2 mg/dL (0.0-0.5); Bilirubin Total 0.6 mg/dL (0.0-1.0); C Reactive Protein 0.51 mg/dL (< or = 0.50); Iron 113 mcg/dL (45-160); Percent Iron Saturation 39 % (15-50); Total Iron Binding Capacity 291 mcg/dL (228-428); Total Protein 7.4 g/dL (6.5-8.0); Unsaturated Iron Binding 178 ug/dL
[2023-09-30 14:33] LABS: Ferritin 148 ng/mL (20-250); TSH reflex Free T4 1.04 uIU/mL (0.32-4.0)
[2023-10-01 19:39] LABS: Immunoglobulin A 214 mg/dL (47-310)
[2023-10-01 20:02] LABS: Transglutaminase IgA <1.0 U/mL
== END 2023-09-30 11:55 | disposition home or self-care (01) ==
LOC: HO.LAB 11:54
PROVIDERS: PCP Internal Medicine Medical Oncology; Visit Provider Internal Medicine
DX: R10.9 Unspecified abdominal pain (principal); R19.4 Change in bowel habit
CPT/HCPCS: 36415; 80076; 82728; 82784; 83036; 83540; 84443; 86140; 86364

== ENCOUNTER 2023-10-05 12:04 | Outpatient (REF) | payer OTHER, SELFPAY ==
[2023-10-10 18:53] LABS: Calprotectin, Fecal 130 mcg/g
== END 2023-10-05 12:05 | disposition home or self-care (01) ==
LOC: HO.LNP 12:04
PROVIDERS: Visit Provider Internal Medicine
DX: R10.9 Unspecified abdominal pain (principal); R19.4 Change in bowel habit
CPT/HCPCS: 83993

== ENCOUNTER 2023-10-11 09:57 | Outpatient (REF) | payer OTHER, SELFPAY ==
--- NOTE | ~2023-10-11 | US_ITS ---
EXAMINATION: US ABDOMEN COMPLETE CLINICAL INFORMATION: Right upper quadrant pain. COMPARISON: Previous ultrasound November 2020 TECHNIQUE: Real-time imaging of the abdominal viscera. FINDINGS: PANCREAS: The head and body of the pancreas are normal. The tail was not well seen due to bowel gas. ABDOMINAL AORTA: The proximal, mid, and distal segments are normal in caliber. INFERIOR VENA CAVA: Visualized portions are normal. LIVER: Normal. The liver is normal in size. The liver contour is normal. Parenchymal echogenicity is normal. No focal hepatic lesion. There is no intrahepatic biliary duct dilatation seen. GALLBLADDER: Normal. The gallbladder is physiologically distended without evidence of stones, sludge, polyps, wall thickening or pericholecystic fluid. COMMON BILE DUCT: Normal in caliber measuring 0.3 cm in diameter. RIGHT KIDNEY: Extrarenal pelvis.. No hydronephrosis. No renal calculi or focal parenchymal lesions. The kidney measures 11.6 cm in maximum dimension. 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 LEFT KIDNEY: Normal. No hydronephrosis. No renal calculi or focal parenchymal lesions. The kidney measures 12 cm in maximum dimension. SPLEEN: Normal. The spleen measures 10 cm in maximum dimension. FREE FLUID: None. US/US abdomen complete IMPRESSION: Limited visualization of the tail the pancreas otherwise unremarkable exam.
== END 2023-10-11 09:58 | disposition home or self-care (01) ==
LOC: HO.HMGCX 09:57
PROVIDERS: PCP Internal Medicine Medical Oncology; Visit Provider Internal Medicine Medical Oncology
DX: R10.11 Right upper quadrant pain (principal); K21.9 Gastro-esophageal reflux disease without esophagitis
CPT/HCPCS: 76700

== ENCOUNTER 2023-10-17 15:13 | Emergency (ER) | payer OTHER, SELFPAY ==
--- NOTE | ~2023-10-17 | CT_ITS ---
EXAMINATION: CT ABDOMEN AND PELVIS WITHOUT CONTRAST CLINICAL INFORMATION: Nausea, vomiting, abdominal pain COMPARISON: Abdominal ultrasound 10/11/2023 TECHNIQUE: Multidetector volumetric imaging was performed from the superior aspect of the liver through the pubic symphysis. Sagittal and coronal reformatted images were obtained on the technologist's workstation. This CT examination was performed using dose optimization techniques as appropriate, variously including the following: *Automated exposure control *Adjustment of mA and/or kV according to patient size (this includes techniques or standardized protocols for targeted exams where dose is matched to indication/reason for exam; i.e. extremities or head) *Use of iterative reconstruction technique DLP: 433 mGy-cm FINDINGS: LUNG BASES: Unremarkable. ABDOMINAL AND PELVIC WALL: Small fat-containing umbilical hernia. LIVER AND BILIARY TREE: Unremarkable. GALLBLADDER: Unremarkable. PANCREAS: Unremarkable. SPLEEN: Unremarkable. ADRENAL GLANDS: Unremarkable. KIDNEYS AND URETERS: Unremarkable. GASTROINTESTINAL TRACT: Colonic diverticulosis without evidence of diverticulitis. Normal appendix. VASCULAR: Unremarkable. LYMPH NODES/PERITONEUM: No lymphadenopathy. FREE FLUID: None. BLADDER: Unremarkable. PELVIC VISCERA: Unremarkable. OSSEOUS STRUCTURES: Unremarkable. CT/CT abdomen pelvis wo IV con IMPRESSION: No acute findings to exclude symptoms of abdominal pain.
[2023-10-17 15:32] VITALS: BP 106/55; PULSE 63; RESP 18; TEMP 36.6; O2SAT 100; BMI 27.8
--- NOTE | 2023-10-17 15:33 | ED_ITS ---
HPI - General Adult General Chief complaint: Abdominal Pain Stated complaint: abd. pain constipation Time Seen by Provider: 10/17/23 22:35 Source: patient, RN notes reviewed and old records reviewed Mode of arrival: ambulatory Limitations: no limitations History of Present Illness HPI narrative: 37-year-old male presents for evaluation abdominal pain and diarrhea. Patient reports he has had these symptoms ongoing for about 6 months. He has seen GI several times. He reports ?they have done all kinds of testing including endoscopy, stool studies, x-rays and CT scans. He reports he is due for ?x-ray with contrast in October. ? 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 Denies any history abdominal surgeries He reports he is on methadone 35 mg and has been on it for over 5 years Related Data Home Medications ?Medication ?Instructions ?Recorded ?Confirmed methadone 10 mg/5 mL oral solution 35 mg PO DAILY 09/30/23 polyethylene glycol 3350 17 17 g PO DAILY 09/30/23 gram/dose oral powder (Miralax) Previous Rx's ?Medication ?Instructions ?Recorded omeprazole 20 mg capsule,delayed 20 mg PO BID 30 days #60 caps 09/30/23 release loperamide 2 mg capsule (Imodium 2 mg PO Q4H PRN loose stool #20 10/17/23 A-D) caps Allergies Allergy/AdvReac Type Severity Reaction Status Date / Time No Known Allergies Allergy Verified 10/17/23 15:34 [No Known Allergies*] Review of Systems 2 Constitutional: Constitutional: Denies body ache(s), Denies chills, Denies fever(s), Denies headache(s), Reports weakness and Reports weight loss Eyes: Eyes: Denies blurry vision ENT: Denies headache(s) and Denies sore throat Cardiovascular: Cardiovascular: Denies chest pain and Denies dyspnea Respiratory: Respiratory: Denies cough and Denies dyspnea Gastrointestinal: Gastrointestinal: Reports abdominal pain, Denies hematochezia, Reports diarrhea, Reports loose stools, Reports nausea and Denies vomiting Integumentary/Breasts: Skin/Breast: Denies rash Neurologic: Denies headache(s) and Reports weakness Psychiatric: Psychiatric: Denies anxiety Endocrine: Endocrine: Denies other PMFSH Past Medical History Medical History Opiate dependence GERD (gastroesophageal reflux disease) Surgical History History of esophagogastroduodenoscopy (EGD) Hx of tooth extraction Surgical history unknown Social History Social History Alcohol intake: current Alcohol intake frequency: does not drink Patient Tobacco Use Status: Never used Tobacco Substance Use Type: Marijuana Advance Directives: No Advance Directives Information Provided: No Physical Exam ED Vital Signs: Vital Signs - 24 hr 10/17/23 15:32 10/17/23 20:37 Temperature 97.9 F 97.2 F Pulse Rate 63 50 Respiratory Rate 18 17 Blood Pressure 106/55 L 92/52 L Pulse Oximetry 100 100 Oxygen Delivery Method Room Air Room Air BMI result Body Mass Index 27.8 Const General: healthy appearing, comfortable, no acute distress, alert and awake Nutritional Appearance: well nourished Orientation/consciousness: patient oriented x3 HENMT Head: Yes normocephalic and Yes atraumatic Eyes Eyelids: Yes eyelids normal Conjunctivae: conjunctivae normal Sclerae: sclerae normal Corneas: corneas normal Pupils: Equal, round and reactive pupils present EOM: EOMs intact bilaterally Neck Neck: Yes full ROM Resp Effort & Inspection: normal respiratory effort, able to speak in complete sentences and not labored GI Inspection: No distended Palpation (GI): Soft to palpation, not firm, nontender, no guarding and not rigid Skin General skin exam: elasticity normal Neuro General: patient oriented x3 Cranial nerves: Yes Equal, round and reactive pupils present and Yes Bilaterally intact EOM present Cognition (Neuro): normal cognition Extrem Other: Moving all extremities well without any obvious deformities Course Course Course Narrative: This is an RME: Additional HPI, ROS, PE not included below will be deferred to primary provider. 37 yo m presents with diarrhea. foul smelling burps for 6 months. Fear of eating. Followed by GI Dr. White. Denies fevers, chills, recent antibiotic use. Denies history of c.diff. Medical Decision Making Medical Decision Making MDM Narrative: 29-year-old male presents for evaluation abdominal pain and chronic diarrhea. I reviewed his recent GI nodes. He had an endoscopy recently which showed pyloric stenosis and potential gastroparesis which was felt to be related to methadone use. The patient had labs today that did not show any concerning abnormalities. He is not clinically dehydrated. The patient's blood pressure was slightly soft at 92/52. The patient was offered IV fluids but declines. His heart rate is 50 and he has not on a beta-pippa. The patient has had stool studies I do not see any indication to repeat these. I encouraged the patient to follow closely with GI coming may benefit from a colonoscopy. In the meantime I will prescribe Imodium for symptomatic control Differential Diagnosis Differential Diagnoses: The differential diagnosis associated with the presentation includes Abdominal pain Diarrhea C diff less likely Dehydration SUSANA Lab Data MDM Lab Attestation statement: I reviewed the patient's lab results. No leukocytosis or anemia. Normal platelet count. No electrolyte abnormalities. 10/17/23 15:46 10/17/23 15:46 Labs: Lab Results 10/17/23 10/17/23 Range/Units 15:46 21:19 WBC 6.8 (4.8-10.8) X10*3/uL RBC 4.94 (4.60-5.80) X10*6/uL Hgb 14.6 (14.0-18.0) g/dl Hct 43.5 (42.0-52.0) % MCV 88.1 (80.0-98.0) fL MCH 29.6 (27.0-33.0) pg MCHC 33.6 (31.0-36.0) g/dl RDW 11.7 (11.0-16.0) % Plt Count 203 (160-400) X10*3/uL MPV 11.2 (9.4-12.4) fL Immature Gran % (Auto) 0.3 (0.0-0.4) % Neut % (Auto) 54.0 (45-73) % Lymph % (Auto) 36.7 (20-40) % [place] % (Auto) 6.0 (2-11) % Eos % (Auto) 2.7 (0-4) % Baso % (Auto) 0.3 (0-2) % Lymph # (Auto) 2.5 (1.2-4.9) X10*3/uL [place] # (Auto) 0.4 (0.1-1.2) X10*3/uL Eos # (Auto) 0.2 (0.0-0.4) X10*3/uL Baso # (Auto) 0.0 (0.0-0.2) X10*3/uL Abs Immat Gran (auto) 0.02 (0.00-0.03) X10*3/uL Absolute Neuts (auto) 3.7 (2.0-8.3) x10*3/uL Absolute Nucleated RBC 0.000 (0.0-0.012) X10*3/uL Nucleated RBC % (auto) 0.0 (0.0-0.2) /100WBC Sodium 141 (135-145) mmol/L Potassium 3.9 (3.3-5.1) mmol/L Chloride 106 (96-108) mmol/L Carbon Dioxide 29 (22-29) mmol/L Anion Gap 10 L (12-20) BUN 13 (9-16) mg/dL Creatinine 0.86 (0.5-1.4) mg/dL Estim Creat Clear Calc 103.1 Estimated GFR > 60 Random Glucose 95 (60-115) mg/dL Calcium 9.8 (8.4-10.2) mg/dL Magnesium 2.0 (1.6-2.6) mg/dL Total Bilirubin 0.4 (0.0-1.0) mg/dL AST 35 (5-37) U/L ALT 43 H (0-40) U/L Alkaline Phosphatase 82 (39-117) U/L Total Protein 7.6 (6.5-8.0) g/dL Albumin 4.5 (3.5-5.0) g/dL Urine Color Yellow Urine Appearance Clear Urine pH 5.5 (5.0-9.0) Ur Specific Hannah 1.025 (1.005-1.025) Urine Protein Negative (Neg-Trace) mg/dL Urine Glucose (UA) Negative (Negative) mg/dL Urine Ketones Negative (Negative) mg/dL Urine Blood Negative (Negative) Urine Nitrite Negative (Negative) Ur Leukocyte Esterase Negative (Negative) Independent Interpretation I performed an independent interpretation of an: CT Scan Interpretation: Agree with Radiology interpretation, no obvious cause of the patient's symptoms identified on CT scan Radiology Impression Discussion of test interpretation with radiology: I have reviewed the radiologist's reading. Radiologist Impression: No acute findings to exclude symptoms of abdominal pain Discharge Plan Discharge Clinical Impression: Abdominal pain, Chronic diarrhea Patient Disposition: Home, Self-Care Instructions: Acute Diarrhea (ED) Additional Instructions: Your workup in the ER today was reassuring. I recommend that you try Imodium as directed Follow-up with your GI doctor as discussed You may benefit from a colonoscopy Return for new or worsening symptoms Prescriptions: New loperamide [Imodium A-D] 2 mg capsule 2 mg PO Q4H PRN (Reason: loose stool) Qty: 20 0RF Rx Instructions: administer after each loose stool until symptoms controlled; do not exceed 8 mg per 24 hrs No Action methadone 10 mg/5 mL solution 35 mg PO DAILY polyethylene glycol 3350 [Miralax] 17 gram/dose powder 17 g PO DAILY omeprazole 20 mg capsule,delayed release(DR/EC) 20 mg PO BID 30 Days Qty: 60 2RF Referrals: Savannah Pavon MD [Physician] - (Chronic diarrhea) Stand Alone Forms: Work/School Release Discharge Date/Time: 10/17/23 23:09 Print Language: Wolof
[2023-10-17 15:51] LABS: MANUAL DIFF FLAG NO
[2023-10-17 15:59] LABS: Basophils Percent Auto 0.3 % (0-2); Eosinophils Absolute Auto 0.2 X10*3/uL (0.0-0.4); Eosinophils Percent Auto 2.7 % (0-4); Hematocrit 43.5 % (42.0-52.0); Hemoglobin 14.6 g/dl (14.0-18.0); Imm Gran Abs Auto 0.02 X10*3/uL (0.00-0.03); Imm Gran Pct Auto 0.3 % (0.0-0.4); Lymphocytes Absolute Auto 2.5 X10*3/uL (1.2-4.9); Lymphocytes Percent Auto 36.7 % (20-40); Mean Corpuscular HGB Conc 33.6 g/dl (31.0-36.0); Mean Corpuscular Hemoglobin 29.6 pg (27.0-33.0); Mean Corpuscular Volume 88.1 fL (80.0-98.0); Mean Platelet Volume 11.2 fL (9.4-12.4); Monocytes Absolute Auto 0.4 X10*3/uL (0.1-1.2); Neutrophils Absolute Auto 3.7 x10*3/uL (2.0-8.3); Platelet Count 203 X10*3/uL (160-400); Red Blood Count 4.94 X10*6/uL (4.60-5.80); Red Cell Distribution Width 11.7 % (11.0-16.0); White Blood Count 6.8 X10*3/uL (4.8-10.8)
[2023-10-17 16:07] LABS: Alanine Aminotransferase 43 U/L (0-40); Albumin Level 4.5 g/dL (3.5-5.0); Alkaline Phosphatase 82 U/L (39-117); Anion Gap 10 (12-20); Aspartate Amino Transferase 35 U/L (5-37); Bilirubin Total 0.4 mg/dL (0.0-1.0); Blood Urea Nitrogen 13 mg/dL (9-16); Calcium 9.8 mg/dL (8.4-10.2); Carbon Dioxide 29 mmol/L (22-29); Chloride 106 mmol/L (96-108); Creatinine Clr Calc Pharmacy 103.1; Estimated Glomerular Filt Rate > 60; Glucose Random 95 mg/dL (60-115); Potassium 3.9 mmol/L (3.3-5.1); Sodium 141 mmol/L (135-145); Total Protein 7.6 g/dL (6.5-8.0)
[2023-10-17 20:37] VITALS: BP 92/52; PULSE 50; RESP 17; TEMP 36.2; O2SAT 100
[2023-10-17 21:30] LABS: Appearance Urine Clear; Color Urine Yellow; Glucose Urine UA Negative (Negative); Leukocyte Esterase Urine Negative (Negative); Nitrite Urine Negative (Negative); PH 5.5 (5.0-9.0); Specific Gravity - Urine 1.025 (1.005-1.025); Urine Blood Negative (Negative); Urine Ketones Negative (Negative); Urine Protein Negative (Neg-Trace)
== END 2023-10-17 23:09 | disposition home or self-care (01) ==
PROVIDERS: Physician Assistant; Emergency Provider Emergency Medicine; PCP Internal Medicine Medical Oncology
DX: R10.9 Unspecified abdominal pain (principal); K52.9 Noninfective gastroenteritis and colitis, unspecified; F11.20 Opioid dependence, uncomplicated
CPT/HCPCS: 36415; 74176; 80053; 81003; 83735; 85025; 99282; 99284

== ENCOUNTER 2023-10-28 14:50 | Outpatient (AMB) | payer OTHER, SELFPAY ==
[2023-10-28 14:51] VITALS: BP 93/55; PULSE 81; BMI 27.8
--- NOTE | 2023-10-28 14:51 | MHC.OFFVIS ---
Vital Signs 10/28/23 14:51 Height 5 ft 3 in Weight 157 lb BMI 27.8 BP 93/55 L Blood Pressure Location Lt brachial Position Sitting Pulse 81 Intake Visit Reasons: Follow up weeks labs Intake Note: Talha presents in the office as a follow up for his labs. CC: He states that nothing has changed - he is still going through the same situation as when he first started coming. States that not too long ago he was seen in the ED - Last saturday. His stomach was severely bothering him - diarrhea like crazy and burps that taste like sulfer. He notices that certain foods make him flare up. [employer] Required: No Allergies No Known Allergies [No Known Allergies*] Allergy (Verified 10/28/23 14:58) HPI Comments Details: 37 y.o M with PMH of opiate use disorder on methadone maintenance, who is here for abdominal pain and acid reflux. 04/26/23: Pt reports that he has had GI issues since his childhood and reports having xrays done for his abd and was told he had ulcers and was started on a medication for a few months. Does not report any endoscopy for this. Now for about a year and a half has been having burning epigastric pain which starts first thing in the morning. Pain gets better with eating. Also associated with severe cramping and urge to defecate but feels constipated and has to strain significantly. Takes miralax once daily and is able to go twice a day but burning pain is still persistent. Occ N,V. Was trialed on Zantac, prilosec and now on Nexium x 4 weeks. Despite this has to take TUMS. No frequent NSAID use. Smokes marijuana 6 joints a day. No etOH. 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 Hep serologies neg 12/2022. No fam hx stomach ca or liver disease. EGD 08/22/23: Larynx:normal Esophagus: GE junction at 38 cm, diaphragm hiatus at 38 cm, bx taken from GEJ, distal esophagus Stomach: Patchy gastric erythema with small amount of residual food debris noted. Biopsies were obtained. Grade 2 flap valve on retroflexed examination of the cardia. 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 Stomach, biopsy: Antral-type mucosa with mild chronic inactive inflammation; no Helicobacter organisms seen. B. GE junction, biopsy: - Cardiofundic-type mucosa with mild chronic inactive inflammation; no intestinal metaplasia seen. - No squamous epithelium seen. C. Esophagus, distal, biopsy: Squamous epithelium within normal limits; no inflammation seen. 09/04/23: Here for post-EGD visit. 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 Reports improvement in cramping and bloating sx since EGD with pyloric dilation. Had stopped taking miralax and now constipation worse. Not getting better with just taking metamucil. 09/30/23: Req this appt as continues to have epigastric discomfort pam after eating with considerable borborygmi. BMs have started to fluctuate now has diarrhea whereas prev constipated. No blood in stool. Weight curve stable. 10/28/23: Patient here for follow-up after recent lab testing. Reviewed stool fecal calprotectin is slightly elevated. Will recommend a colonoscopy for further evaluation specially given change in bowel habits. Upper GI series and HIDA scan pending [facility] Medical History Opiate dependence GERD (gastroesophageal reflux disease) Surgical History History of esophagogastroduodenoscopy (EGD) Hx of tooth extraction Surgical history unknown Social History Alcohol intake: current Alcohol intake frequency: does not drink Patient Tobacco Use Status: Never used Tobacco Substance Use Type: Marijuana Review of Systems Const All systems reviewed & are unremarkable except as noted in HPI and below Physical Exam Vital Signs: Last Vital Signs Pulse 81 10/28/23 14:51 BP 93/55 L 10/28/23 14:51 BMI result Body Mass Index 27.8 No acute distress Nonicteric Abdomen soft, mildly tender No lower extremity edema Assessment & Plan Assessment & Plan (1) Abdominal pain: Code(s): R10.9 - Unspecified abdominal pain Category: Medical (2) Change in bowel habit: Code(s): R19.4 - Change in bowel habit Category: Medical (3) Elevated fecal calprotectin: Code(s): R19.5 - Other fecal abnormalities Category: Medical Plan Here for change in bowel habits and worsening abd pain. Sx mostly post-prandial. Also reports eggy burps ? GERD. Other differentials include SIBO, IBS D. EGD suggestive of delayed gastric emptying. Upper GI series and HIDA scan is pending to evaluate further. Given change in bowel habits and elevated fecal calprotectin, will proceed with colonoscopy for luminal evaluation. In the meantime, we will trial rifaximin empirically for SIBO versus non constipation IBS. Plan: - colonoscopy to be booked - PEG prep instructions reviewed and a handout was given to the patient - rifaximin 550 t.i.d. x 14d as above - follow-up after testing is completed Medications: New rifaximin 550 mg PO TID 42 tabs 0RF 14 days peg 3350-electrolytes 236-22.74-6.74 -5.86 gram (Golytely) as per split prep instructions, until fecal effluent is clear 240 mL PO Q10M 4,000 mL 0RF colonoscopy Coding Level of Care Code Est Pt Level 4 (16836) Diagnoses Abdominal pain R10.9 Change in bowel habit R19.4 Elevated fecal calprotectin R19.5
== END 2023-10-28 15:27 | disposition home or self-care (01) ==
PROVIDERS: PCP Internal Medicine Medical Oncology; Visit Provider Internal Medicine
DX: R10.9 Unspecified abdominal pain (principal); R19.4 Change in bowel habit; R19.5 Other fecal abnormalities
CPT/HCPCS: 99214

== ENCOUNTER → 2023-10-28 14:50 | Outpatient (BNVA) | payer OTHER, SELFPAY | PROVIDERS: PCP Internal Medicine Medical Oncology; Visit Provider Internal Medicine ==

== ENCOUNTER 2023-11-04 10:23 | Outpatient (REF) | payer OTHER, SELFPAY ==
--- NOTE | ~2023-11-04 | FL_ITS ---
EXAMINATION: XR FLUOROSCOPY UPPER GI WITH AIR CLINICAL INFORMATION: Abdominal pain. COMPARISON: None TECHNIQUE: Fluoroscopic air contrast upper GI examination was performed utilizing standard techniques with thin and thick barium and effervescent granules. Numerous spot images were obtained. FINDINGS: Dual and single contrast images of the esophagus demonstrate normal caliber, contour, and mucosal pattern. No evidence of stricture, mass, or ulcerations identified. Esophageal peristalsis was normal. No evidence of hiatus hernia identified. No significant gastroesophageal reflux was seen during the course of the examination and on reflux views. Dual contrast and single contrast images of the stomach demonstrated normal contour and mucosal pattern without evidence of mass, ulceration, or other abnormality. Contrast freely passed into the gastric antrum and duodenal bulb without delay. Single and air-contrast images of the duodenal bulb demonstrate no abnormality. The duodenal sweep has a normal appearance, course, and mucosal fold appearance. FLUOROSCOPY TIME: 3 minutes 55 seconds Number of Spot Images: 9 Number of Cine: 13 DOSE AREA PRODUCT: 2344 uGy-m2 (microgray-meter squared) FL/FL upper GI series IMPRESSION: Unremarkable upper GI series This procedure was performed by Dev Tristan PA-C, and supervised by Dr. Galvez
== END 2023-11-04 10:24 | disposition home or self-care (01) ==
LOC: HO.XRAY 10:23
PROVIDERS: PCP Internal Medicine Medical Oncology; Visit Provider Internal Medicine
DX: R10.9 Unspecified abdominal pain (principal)
CPT/HCPCS: 74240

== ENCOUNTER → 2023-11-04 10:25 | Outpatient (BNV) | payer OTHER, SELFPAY | PROVIDERS: PCP Internal Medicine Medical Oncology; Visit Provider Physician Assistant Surgical | DX: R10.9 Unspecified abdominal pain (principal) | CPT/HCPCS: 74246 ==

== ENCOUNTER → 2023-11-15 10:01 | Outpatient (REF) | payer OTHER, SELFPAY ==
--- NOTE | ~2023-11-15 | NM_ITS ---
EXAMINATION: BILIARY TRACT IMAGING STUDY WITH CCK CLINICAL INFORMATION: Unspecified abdominal pain.. COMPARISON: Abdominal ultrasound done on 10/11/[address] of the abdomen and pelvis done on 10/17/2023.. TECHNIQUE: Serial gamma scintillation camera images were obtained over the abdomen for a total observation period of 60 minutes following the intravenous administration of 5 mCi Tc-99m mebrofenin. FINDINGS: There is good concentration of activity in the liver by 5 minutes post injection. Biliary activity is visualized by 10 minutes. The gallbladder is well visualized by 20 minutes. Small bowel is well visualized by 74 minutes. At 60 minutes post radiopharmaceutical injection, a 30-minute infusion of 1.4 micrograms Sincalide was then begun and an additional 40 minutes of images were obtained. There is good emptying of the gallbladder. By the end of the study there is good clearance of activity from the liver and visualization of diffuse small bowel activity. The calculated gallbladder ejection fraction is 83% (Normal range of gallbladder ejection fraction is between 35-80%; GBEF <35% is considered biliary hypokinesia and >80% is considered biliary hyperkinesia; Ref. #1-Clinical Journal of Gastroenterology (2020) 14:1308?1317; Ref.#2-[email or web address]). NM/NM hepatobiliary w pharm IMPRESSION: Visualization of the gallbladder is evidence of a patent cystic duct and strong evidence against the diagnosis of acute cholecystitis. The common bile duct is patent. Gallbladder emptying and ejection fraction are abnormal. Liver function appears normal.
== END ==
LOC: HO.NUCMED 10:01
PROVIDERS: PCP Internal Medicine Medical Oncology; Visit Provider Internal Medicine
DX: R10.9 Unspecified abdominal pain (principal); R19.4 Change in bowel habit
CPT/HCPCS: 78227; A9537; J2805

== ENCOUNTER 2023-11-27 08:59 | Day surgery (SDC) | payer OTHER, SELFPAY ==
--- NOTE | 2023-11-27 09:13 | HO.ANESPROP2 ---
PMF Active Problems Active Problems: All Active Problems Elevated fecal calprotectin (Acute) Change in bowel habit (Acute) Constipation (Acute) Abdominal pain (Acute) Past Medical History Medical History Opiate dependence GERD (gastroesophageal reflux disease) Family History Family history of problems with anesthesia: No Surgical History Surgical History History of esophagogastroduodenoscopy (EGD) Hx of tooth extraction Surgical history unknown History of Problems with Anesthesia: No Social History Social History Alcohol intake: current Alcohol intake frequency: does not drink Patient Tobacco Use Status: Never used Tobacco Substance Use Type: Marijuana Substance Use Frequency: Daily Are you DNR?: No Advance Directives: No Advance Directives Information Provided: Yes Nutrition Risks: No Nutritional Risk Meds Allergies Allergy/AdvReac Type Severity Reaction Status Date / Time No Known Allergies Allergy Verified 11/27/23 09:42 [No Known Allergies*] Home Medications ?Medication ?Instructions ?Recorded ?Confirmed ?Last Taken ?Type methadone 10 mg/5 mL oral solution 35 mg PO DAILY 09/30/23 11/27/23 11/27/23 History polyethylene glycol 3350 17 17 g PO DAILY 09/30/23 11/27/23 Unknown History gram/dose oral powder (Miralax) Exam Airway Mallampati Class: II TM Dist: >3cm Neck ROM: Full Heart: rrr Lungs: cta Assessment and Plan Assessment Anesthesia Assessment: Anesthesia Plan Discussed and Chart Reviewed Final Anesthetic Review Family History of Problems with Anesthesia: No History of Problems with Anesthesia: No NPO: Yes ASA Class: II Final Preanesthetic Review: No Changes in Pt Med Stat, Meds/Allgs Chart Reviewed and Consent Obtained/Reviewed Patient Risk: Low Procedure Risk: Low Anesthetic Plan Anesthetic Plan: MAC: Disposition: Standard PACU
[2023-11-27 09:53] VITALS: BMI 27.5
[2023-11-27 10:10] VITALS: BP 103/60; PULSE 73; RESP 18; TEMP 36.7; O2SAT 97
--- NOTE | 2023-11-27 10:54 | MHC.SHP ---
Pre-Procedural Eval Section A - 24 Hr Update-Section A only Date of Service: 11/27/23 Section B - Complete if H&P > 30 days Chief Complaint: Unspecified abdominal pain Relevant Family History (Specify if Yes): No Relevant Social History: Other (specify) (thc) Present Medications: see Short Stay Collaborative assessment Medical History: Significant History (Opiate dependence GERD (gastroesophageal reflux disease)) History of Previous Operations: Relevant previous surgery/procedure and date(s) (History of esophagogastroduodenoscopy (EGD) Hx of tooth extraction) Allergies: Allergies Allergy/AdvReac Type Severity Reaction Status Date / Time No Known Allergies Allergy Verified 11/27/23 09:42 [No Known Allergies*] Review of Systems Sugical H&P ROS: Negative: Constitution, Cardiovascular, Respiratory, Neurological, Psychiatric, Hem-Onc, Allergic/Immunologic, Gastrointestinal, Genitourinary, Musculoskeletal, Integumentary, Endocrine and Eyes/Ears/Nose/Throat Exam Surgical H&P Exam: Normal: HEENT, Normal: Heart, Normal: Lungs, Normal: Extremities, Normal: Abdomen, Normal: Skin and Normal: Neurological Plan Diagnosis/Plan: Unchanged I have reviewed the history and physical and performed a pertinent physical examination on my patient. No changes have occurred unless specified. Time Spent With Patient Time: Total time managing care of this patient today ____ minutes.
--- NOTE | 2023-11-27 11:30 | HO.OPN-COLON ---
Colonoscopy Operative Note Operative Note Date of Service: 11/27/23 Narrative: Operative Information Procedure Description: Colonoscopy Indication: raised fecal calprotectin Anesthesia: MAC COLONOSCOPY Instrument: Olympus variable stiffness pediatric scope 190L Colonoscopy Monitoring: Vital signs and clinical assessment, continuous EKG monitoring, Pulse oximetry, Carbon Dioxide monitoring and blood pressure monitoring were done throughout the procedure. Colon withdrawal time was 8 minutes. Procedure: The patient was placed in the left lateral decubitis position and pre-procedure medications were administered. After a digital rectal examination of the ano-rectum, the video colonoscope was inserted into the rectum and advanced through the colon to the cecum/TI. The colonoscope was slowly withdrawn in a retrograde panoramic fashion and the colon mucosa was carefully examined including a retroflexed view of the rectum. Findings and interventions are described below. Procedure Difficulty: easy Findings: Terminal Ileum-normal bx taken Random bx taken from right, left colon and rectum in separate jars Cecum:normal Ascending Colon: normal Transverse Colon -normal Descending Colon:normal Sigmoid Colon: normal Rectum: Retroflexion with small internal hemorrhoids seen, grade I Anorectum - normal Intervention: biopsy -cold forceps Colon preparation: [place] Bowel Preparation Scale Right colon; 2 Transverse colon: 2 Left colon; 1-2 (0 = Unprepared colon segment with mucosa not seen due to solid stool that cannot be cleared. 1 = Portion of mucosa of the colon segment seen, but other areas of the colon segment not well seen due to staining, residual stool and/or opaque liquid. 2 = Minor amount of residual staining, small fragments of stool and/or opaque liquid, but mucosa of colon segment seen well. 3 = Entire mucosa of colon segment seen well with no residual staining, small fragments of stool or opaque liquid) Impression and Post Procedure Diagnosis: internal hemorrhoids Plan: High fiber diet leaflet Avoid straining at stool, epsom salts and sitz bath, anusol supps or cream Repeat Colonoscopy aged 45 or earlier if clinically indicated Above findings were reviewed with the patient and relevant handouts were provided if indicated.
[2023-11-27 11:36] VITALS: BP 90/50; PULSE 56; RESP 14; TEMP 36.3; O2SAT 97
[2023-11-27 11:41] VITALS: BP 94/58; PULSE 52; RESP 16; O2SAT 100
[2023-11-27 11:51] VITALS: BP 97/65; PULSE 52; RESP 16; TEMP 36.3; O2SAT 100
== END 2023-11-27 12:28 | disposition home or self-care (01) ==
PROVIDERS: PCP Internal Medicine Medical Oncology; Visit Provider Internal Medicine Gastroenterology
PROC: 0DJD8ZZ Inspection of Lower Intestinal Tract, Via Natural or Artificial Opening Endoscopic (ICD-10-PCS; CPT 45378; principal; 2023-11-27 11:20)
DX: K52.89 Other specified noninfective gastroenteritis and colitis (principal); K64.8 Other hemorrhoids; R10.9 Unspecified abdominal pain; R19.4 Change in bowel habit; R19.5 Other fecal abnormalities; F11.20 Opioid dependence, uncomplicated
CPT/HCPCS: 45380; 88305; J2704

== ENCOUNTER → 2023-11-27 08:59 | Outpatient (BNV) | payer OTHER, SELFPAY | PROVIDERS: PCP Internal Medicine Medical Oncology; Visit Provider Internal Medicine Gastroenterology | DX: R19.5 Other fecal abnormalities (principal); K64.0 First degree hemorrhoids | CPT/HCPCS: 45380 ==

== ENCOUNTER 2023-12-09 11:14 | Outpatient (AMB) | payer OTHER, SELFPAY ==
--- NOTE | 2023-12-09 11:15 | MHC.OFFVIS ---
Vital Signs 12/09/23 11:18 Height 5 ft 3 in Weight 152 lb 1.903 oz BMI 26.9 BP 90/63 Blood Pressure Location Lt brachial Position Sitting Pulse 68 Intake Visit Reasons: 2 month follow up results Intake Note: Talha presents in the office as a 2 month follow up regarding results. CC: Here for results for procedures and imaging. Issues are off and on and states the past 2 days he has had some constipation but things are good since he switched his diet around. Allergies No Known Allergies [No Known Allergies*] Allergy (Verified 12/09/23 11:18) HPI Comments Details: 37 y.o M with PMH of opiate use disorder on methadone maintenance, who is here for abdominal pain and acid reflux. 04/26/23: Pt reports that he has had GI issues since his childhood and reports having xrays done for his abd and was told he had ulcers and was started on a medication for a few months. Does not report any endoscopy for this. Now for about a year and a half has been having burning epigastric pain which starts first thing in the morning. Pain gets better with eating. Also associated with severe cramping and urge to defecate but feels constipated and has to strain significantly. Takes miralax once daily and is able to go twice a day but burning pain is still persistent. Occ N,V. Was trialed on Zantac, prilosec and now on Nexium x 4 weeks. Despite this has to take TUMS. No frequent NSAID use. Smokes marijuana 6 joints a day. No etOH. 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 Hep serologies neg 12/2022. No fam hx stomach ca or liver disease. EGD 08/22/23: Larynx:normal Esophagus: GE junction at 38 cm, diaphragm hiatus at 38 cm, bx taken from GEJ, distal esophagus Stomach: Patchy gastric erythema with small amount of residual food debris noted. Biopsies were obtained. Grade 2 flap valve on retroflexed examination of the cardia. 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 Stomach, biopsy: Antral-type mucosa with mild chronic inactive inflammation; no Helicobacter organisms seen. B. GE junction, biopsy: - Cardiofundic-type mucosa with mild chronic inactive inflammation; no intestinal metaplasia seen. - No squamous epithelium seen. C. Esophagus, distal, biopsy: Squamous epithelium within normal limits; no inflammation seen. 09/04/23: Here for post-EGD visit. 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 Reports improvement in cramping and bloating sx since EGD with pyloric dilation. Had stopped taking miralax and now constipation worse. Not getting better with just taking metamucil. 09/30/23: Req this appt as continues to have epigastric discomfort pam after eating with considerable borborygmi. BMs have started to fluctuate now has diarrhea whereas prev constipated. No blood in stool. Weight curve stable. 10/28/23: Patient here for follow-up after recent lab testing. Reviewed stool fecal calprotectin is slightly elevated. Will recommend a colonoscopy for further evaluation specially given change in bowel habits. Upper GI series and HIDA scan pending. 11/27/23: [place] (Dr Hebert) BBPS 11/06 (left colon not fully visualised) internal hemorrhoids 12/09/23: Here for follow-up after recent testing. Results of colonoscopy reviewed. He is aware that he is to resume colorectal cancer screening at 44. We also reviewed results of upper GI series and HIDA scan. MILD biliary hyperkinesia noted on HIDA scan. Otherwise feels very well. Reports since decreasing fatty/greasy food has noted resolution in abd discomfort and constipation. Takes miralax every day and helps regulate bowels. [facility] Medical History Opiate dependence GERD (gastroesophageal reflux disease) Surgical History (Updated 12/09/23 @ 11:18 by ALISTAIR Worthington) Hx of colonoscopy History of esophagogastroduodenoscopy (EGD) Hx of tooth extraction Surgical history unknown Social History Alcohol intake: current Alcohol intake frequency: does not drink Patient Tobacco Use Status: Never used Tobacco Substance Use Type: Marijuana Review of Systems Const All systems reviewed & are unremarkable except as noted in HPI and below Physical Exam Vital Signs: Last Vital Signs Pulse 68 12/09/23 11:18 BP 90/63 12/09/23 11:18 BMI result Body Mass Index 26.9 No apparent distress Nonicteric Abdomen soft, nondistended Alert and oriented x3, normal gait Assessment & Plan Assessment & Plan (1) Change in bowel habit: Code(s): R19.4 - Change in bowel habit Category: Medical (2) Constipation: Code(s): K59.00 - Constipation, unspecified Category: Medical (3) Abdominal pain: Code(s): R10.9 - Unspecified abdominal pain Category: Medical Plan Patient was reassured of the normal workup so far. He also reports improvement in his symptoms as long as he manages his constipation. He is aware to call us for any changes in his symptoms, may explore biliary hyperkinesia further at that time (again this is MILD 83% and location/character pain not consistent with biliary colic). Otherwise p.r.n. follow-up. Colonoscopy at 44. Medications: New polyethylene glycol 3350 (Miralax) 17 grams PO DAILY 238 grams 1RF Coding Level of Care Code Est Pt Level 3 (64242) Diagnoses Change in bowel habit R19.4 Constipation K59.00 Abdominal pain R10.9
[2023-12-09 11:18] VITALS: BP 90/63; PULSE 68; BMI 26.9
== END 2023-12-09 11:37 | disposition home or self-care (01) ==
LOC: HO.HGI 11:14
PROVIDERS: PCP Internal Medicine Medical Oncology; Visit Provider Internal Medicine
DX: K59.00 Constipation, unspecified (principal)
CPT/HCPCS: 99213

== ENCOUNTER → 2023-12-09 11:14 | Outpatient (BNVA) | payer OTHER, SELFPAY | PROVIDERS: PCP Internal Medicine Medical Oncology; Visit Provider Internal Medicine ==

== ENCOUNTER 2025-01-26 07:16 | Outpatient (REF) | payer OTHER, SELFPAY ==
[2025-01-26 07:27] LABS: MANUAL DIFF FLAG NO
[2025-01-26 08:16] LABS: Hematocrit 38.5 % (42.0-52.0); Hemoglobin 13.0 g/dl (14.0-18.0); Imm Gran Abs Auto 0.07 X10*3/uL (0.00-0.03); Imm Gran Pct Auto 1.0 % (0.0-0.4); Lymphocytes Absolute Auto 2.3 X10*3/uL (1.2-4.9); Mean Corpuscular HGB Conc 33.8 g/dl (31.0-36.0); Mean Corpuscular Hemoglobin 29.5 pg (27.0-33.0); Mean Corpuscular Volume 87.5 fL (80.0-98.0); NRBC Abs Auto 0.000 X10*3/uL (0.0-0.012); NRBC Pct Auto 0.0 /100WBC (0.0-0.2); Platelet Count 194 X10*3/uL (160-400); Red Blood Count 4.40 X10*6/uL (4.60-5.80); White Blood Count 7.3 X10*3/uL (4.8-10.8)
[2025-01-26 08:54] LABS: Alanine Aminotransferase 50 U/L (0-40); Albumin Level 4.6 g/dL (3.5-5.0); Alkaline Phosphatase 64 U/L (39-117); Anion Gap 12 (12-20); Aspartate Amino Transferase 40 U/L (5-37); Blood Urea Nitrogen 16 mg/dL (9-16); Calcium 9.1 mg/dL (8.4-10.2); Carbon Dioxide 28 mmol/L (22-29); Chloride 103 mmol/L (96-108); Cholesterol 185 mg/dL (<200); Estimated Glomerular Filt Rate > 60; HDL Cholesterol 42 mg/dL (>40); Potassium 4.0 mmol/L (3.3-5.1); Sodium 139 mmol/L (135-145); Total Protein 7.4 g/dL (6.5-8.0); Triglycerides 183 mg/dL (<150)
[2025-01-26 09:12] LABS: Prostate Specific Antigen 0.28 ng/mL (<0.05-4.0)
== END 2025-01-26 07:17 | disposition home or self-care (01) ==
LOC: HO.LAB 07:16
PROVIDERS: PCP Internal Medicine Medical Oncology; Visit Provider Internal Medicine Medical Oncology
DX: N40.0 Benign prostatic hyperplasia without lower urinary tract symptoms (principal); K21.9 Gastro-esophageal reflux disease without esophagitis; R63.4 Abnormal weight loss
CPT/HCPCS: 36415; 80053; 80061; 84153; 85025; 85652

== ENCOUNTER 2025-06-21 09:00 | Outpatient (AMB) | payer OTHER, SELFPAY ==
--- OUTSIDE RECORDS SUMMARY | 2024-12-24 08:11 | XMS_ITS ---
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 Lazaro Jj III Primary Care Provider REASON FOR VISIT PE needed Social History Sex Assigned At : Social History Observation Description Sex Assigned At Male Encounters Encounter Location Date Provider Diagnosis Lazaro Jj III, MD [address] [place] [address] [place] [address] 12/24/2024 Lazaro Jj Plan Of Treatment Next Appt Details Provider Name:Lazaro Jj , 06/28/2025 04:00:00 PM, [address] [place] [address] [facility] [facility] [place], [phone], Progress Notes * aTlha MCCOY RDOB:1985 (39 yo M)Acc No.[id number]:12/24/2024 Patient: Talha VELASQUEZ :1985 A ge:39 Y S ex:Male Address:[address] [place] [address], [address], [place], [phone] * * Date:
--- OUTSIDE RECORDS SUMMARY | 2025-01-20 11:00 | XMS_ITS ---
Author Organization Lazaro Jj III, MD Address [address] [place] [address] [address] [place] [address] Care Team Providers Care Clinical Marketing Manager Name Role Phone Dr. Lazaro Jj III Primary Care Provider Allergies Allergen (clinical drug ingredient) Drug/Non Drug Allergy documented on EMR Reaction Allergy Type Onset Date Status No Known Drug Allergy Unknown Drug Allergy Active Results Component Value Reference Range Notes Lipid Panel Reviewed date:02/19/2025 03:59:41 PM Interpretation: Performing Lab:[facility], [address] [place] [id number] Notes/Report: Triglycerides 183 <150 mg/dL Desirable Triglyceride: less than 150 mg/dL Borderline High Triglyceride 150-199 mg/dL High Triglyceride: 200-499 mg/dL Very High Triglyceride: greater than or equal to 5OO mg/dL Cholesterol 185 <200 mg/dL Desirable Cholesterol: less than 200 mg/dL Borderline High Cholesterol: 200-239 mg/dL High Cholesterol: greater than 239 mg/dL LDL Cholesterol Calculated 107 <100 mg/dL Desirable LDL: less than 100 mg/dL Near Optimal/Above Optimal LDL: 110-129 mg/dL Borderline High LDL: 130-159 mg/dL High LDL: 160-189 mg/dL Very High LDL: greater than or equal to 190 mg/dL HDL Cholesterol 42 >40 mg/dL Desirable HDL: greater than 40 mg/dL Note: This HDL assay may give artificially low results in patients with liver disease. Reason For Referral Reason Evaluate and Treat Chronic Constipation Diagnosis 1 Chronic GERD (K21.9) Diagnosis 2 Constipation (K59.00 ) Diagnosis 3 Generalized abdomina l discomfort (R10.84) Referral Organization Lazaro Jj III, MD Referring Provider First Name Lazaro Referring Provider Last Name Анна Referring Provider Speciality Internal M edicine Referred Organization [facility] Referred Provider [facility], Gastroenterology Referred Address [address] [place] [address],[place], [place],[phone], Referred Provider Specialty Gastroentero logy General Notes DDipti 01/20/2025 04:31:32 PM > Patient is scheduled to see Dr. Pavon on 03/24/25 @ 1:45pm they will put in a message in to call patient if sooner comes available Referral Priority Urgent Referral Appointment Date 03/24/2025 REASON FOR VISIT Chronic Constipation., Abdominal discomfort, Nocturia Medications Medication SIG (Take, Route, Frequency, Duration) Notes Start Date End Date Status Fluticasone Propionate 50 MCG/ACT 1 spray in each nostril Nasally Once a day 04/22/2023 Active Omeprazole 20 MG 1 capsule 30 minutes before morning meal as needed Orally Once a day Active Metoclopramide HCl 10 MG 1 tablet before meals Orally Four times a day 08/09/2023 Active Omeprazole 20 MG 1 capsule Orally twice a 08/09/19 24 Active Social History Tobacco Use: Social History Observation Description Date Details (start date - stop date) Never Smoker NA - NA Sex Assigned At : Social History Observation Description Sex Assigned At Male Tobacco Use/Smoking Question Answer Notes Patient is a nonsmoker Additional Findings: Tobacco Non-User Aggressive non-smoker Problems Problem Type SNOMED Code ICD Code Onset Dates Problem Status W/U Status Risk Notes Problem Weight loss (692037859) Weight loss (R63.4) Active confirmed He remains overweight, but he has lost 6 pounds since his last visit and more than that since the complaints began over the last few years. A reevaluation will be done. Vital Signs Temperature 98.6 degrees Fahrenheit 01/21/20 25 Blood pressure systolic 103 mm Hg 01/21/20 25 Blood pressure diastolic 63 mm Hg 025 Heart Rate 65 /min 01/20/2025 Height 62 in 01/20/2025 Weight 151 lbs 01/20/2025 BMI 27.62 kg/m2 01/20/2025 Encounters Encounter Location Date Provider Diagnosis Lazaro Jj III, MD [address] [place] [address] DR [facility] [facility] [id number] 01/20/2025 Lazaro Jj Chronic GERD K21.9 ; Weight loss R63.4 and BPH (benign prostatic hypertrophy) N40.0 Assessments Encounter Date Diagnosis (ICD Code) Assessment Notes Treatment Notes Treatment Clinical Notes 01/20/2025 Chronic GERD (ICD-10 - K21.9) He has been compliant with the omeprazole therapy in which will be continued indefinitely.He is taking 20 mg twice a day. 01/20/2025 Weight loss (ICD-10 - R63.4) He remains overweight, but he has lost 6 pounds since his last visit and more than that since the complaints began over the last few years. A reevaluation will be done. 01/20/2025 BPH (benign prostatic hypertrophy) (ICD-10 - N40.0) He continues to rise from sleep once a night to urinate. We have discussed lifestyle modifications he could make to reduce this. Plan Of Treatment Medication Medication Name Sig Start Date Stop Date Notes Fluticasone Propionate 50 MCG/ACT 1 spra y in each nostril Nasally Once a day 04/22/2023 Omeprazole 20 MG 1 capsule 30 minutes before morning meal as needed Orally Once a day Metoclopramide HCl 10 MG 1 tablet before meals Orally Four times a day 08/09/2023 Omeprazole 20 MG 1 capsule Orally twice a 08/09/2023 Pending Test Test Name Order Date PROFILE, FASTING (COMPREHENSIVE METABOLI C) 01/20/2025 PSA, TOTAL 01/20/2025 CBC w DIFF 01/20/2025 SED RATE (ESR) 01/20/2025 Referrals Referral Date Details 01/20/2025 01/20/2025, Evaluate and Treat Chronic Constipation, [facility], [address] [place] [address], [place], [place], [phone], Next Appt Details Follow Up: 1 Week, Reason: T elehealth Provider Name:Lazaro Jj , 06/28/2025 04:00:00 PM, [address] [place] [address] [address], [place], [phone], Progress Notes * Talha MCCOY RDOB:1985 (39 yo M)Acc No.[id number]:01/20/2025 Progress Notes Patient: Talha VELASQUEZ Provider: Nely Jj MD :1985 A ge:39 Y S ex:Male Date:01/20/2025 Address:[address] [place] [address], [facility], [id number] Subjective: * Chief Complaints: * C hronic Constipation.Abdominal discomfortNocturia * HPI: C OVID-19 Screening: He returns to the office complaining of continued generalized abdominal discomfort and constipation. He is quite concerned about this. It test injections to date have not shown any serious cause and regimen this to relieve constipation have been given to him on several occasions. A careful history was taken again today. 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 It has been a year since he saw Dr. Pavon. We made a plan for him to reconsult with her prior to her second opinion and to follow up thereafter. Questions H ave you had any new onset fever, chills, cough, congestion, sore throat, shortness of breath, muscle aches? N o * ROS: G eneral/Constitutional: pain A bdominal discomfort in all quadrants. C hills?denies. F atigue a dmits. F ever d enies. E NT: Decreased hearing d enies. R espiratory: Cough d enies. C ardiovascular: Chest pain with exertion d enies. D yspnea on exertion?denies. S hortness of breath d enies. G astrointestinal: Constipation t hat is severe. D ecreased appetite d enies. D iarrhea d enies. H eartburn d enies. N ausea d enies. R ectal bleeding d enies. V omiting d enies. H ematology: bruising d enies. p etechiae d enies. S wollen glands n one have been noted. G enitourinary: Frequent urination d enies. M usculoskeletal: Muscle aches d enies. P ainful joints d enies. S ciatica d enies. W eakness d enies. S kin: Itching d enies. R fe d enies. S kin lesion(s)?denies. N eurologic: Difficulty speaking d enies. D izziness d enies.?Headache d enies. L ow back pain d enies. P sychiatric: Depressed mood d enies. * Medical History: * Surgical History: f racbella right wrist, casted * Hospitalization/Major Diagno stic Procedure: D enies Past Hospitalization * Family History: F ather: alive 50 yrs, Good health. M other: alive 51 yrs, Reproductive malignancy, diagnosed with Cancer. 2 sister(s) - healthy. 1 daughter(s) - healthy. . His mother and father are in good health. His mother had some kind of female malignancy. His 2 sisters are healthy and well. He has no brothers. He has 1 daughter who is healthy and well. He is not aware of any family history of substance use disorder or mental illness. * Social History: T obacco Use: T obacco Use/Smoking P atmike is a n onsmoker A dditional Findings: Tobacco Non-User A ggressive non-smoker Malaika sanchez was born in [place]. He is bilingual. He works 52 hours a week at [employer]. He is with a 12 year old daughter, Jil, who is healthy and well. He is a nonsmoker. * Medications: T akingFluticasone Propionate 50 MCG/ACT Suspension 1 spray in each nostril Nasally Once a day Metoclopramide HCl 10 MG Tablet 1 tablet before meals Orally Four times a day Omeprazole 20 MG Capsule Delayed Release 1 capsule Orally twice a Taking Fluticasone Propionate 50 MCG/ACT Suspension 1 spray in each nostril Nasally Once a day Taking Metoclopramide HCl 10 MG Tablet 1 tablet before meals Orally Four times a day Taking Omeprazole 20 MG Capsule Delayed Release 1 capsule Orally twice a DiscontinuedOmeprazole 20 MG Capsule Delayed Release 1 capsule 30 minutes before morning meal as needed Orally Once a day Medication List reviewed and reconciled with the patientDiscontinued Omeprazole 20 MG Capsule Delayed Release 1 capsule 30 minutes before morning meal as needed Orally Once a day Medication List reviewed and reconciled with the patient * Allergies: N o Known Drug Allergyno[Allergies Verified] Objective: * Vitals: H t: 62, Wt: 151, BMI:27.62, BP: 103/63, HR: 65, Temp: 98.6, Wt-k.49. * Examination: G eneral Examination: GENERAL APPEARANCE: p leasant, well nourished, well developed, in no acute distress, anxious man. HEAD: a traumatic, normocephalic. EYES: e cayden, perrla, anicteric, conjugate. EARS: n ormal. NOSE: s eptum intact. ORAL CAVITY: n ormal, unremarkable. NECK/THYROID: n o jugular venous distention, no carotid bruit, thyroid normal. LYMPH NODES: n o enlarged lymph nodes,spleen normal. SKIN: n o suspicious lesions, anicteric. HEART: n o clicks, gallops, murmurs, or rubs, regular rhythm, S1, S2 normal, no s3, or vascular bruits. LUNGS: c lear to auscultation . BREASTS: no masses palpable bilaterally. ABDOMEN: b owel sounds normal, no ascites, no organomegaly, no mass, Discomfort is reported on light palpation all quadrants but no abnormalities. RECTAL EXAM: n ot examined. MUSCULOSKELETAL: e xtremities unremarkable, no clubbing, cyanosis or edema. PERIPHERAL PULSES: n ormal. NEUROLOGIC: a lert and oriented, cranial nerves 2-12 grossly intact, deep tendon reflexes 2+ symmetrical, motor strength normal upper and lower extremities, sensory exam intact. PSYCH: a lert, oriented. Assessment: * Assessment: 1. C hronic GERD - K21.9 (Primary) N otes :He has been compliant with the omeprazole therapy in which will be continued indefinitely.He is taking 20 mg twice a day. 2 . W eight loss - R63.4 N otes :He remains overweight, but he has lost 6 pounds since his last visit and more than that since the complaints began over the last few years. A reevaluation will be done. 3 . B PH (benign prostatic hypertrophy) - N40.0 N otes :He continues to rise from sleep once a night to urinate. We have discussed lifestyle modifications he could make to reduce this. Plan: * Treatment: 2. W eight loss L AB: PROFILE, FASTING (COMPREHENSIVE METABOLIC) L AB: PSA, TOTAL L AB: CBC w DIFF L AB: SED RATE (ESR) L AB: Lipid Panel 3. B PH (benign prostatic hypertrophy) L AB: PROFILE, FASTING (COMPREHENSIVE METABOLIC) L AB: PSA, TOTAL L AB: CBC w DIFF L AB: SED RATE (ESR) L AB: Lipid Panel 4. O thers Continue Fluticasone Propionate Suspension, 50 MCG/ACT, 1 spray in each nostril, Nasally, Once a day. Referral To:[facility] Reason:Evaluate and Treat Chronic Constipation * Procedure Codes: * Preventive Medicine: Counseling: C are goal follow-up plan: Counseling for abnormal BMI given Y es Above Normal BMI Follow-up D ietary management education, guidance, and counseling, Dietary needs education * Follow Up: 1 Week (Reason: Telehealth) * Images: * Sign off status: Completed true * Provider: Nely Jj MD Date: 0 01/20/2025 Generated for Israi debra/Alta/eTransmitting on: 1 08/22/2024 09:49 AM EST History and Physical Notes * HPI (History of Present Illness) Category Sub-Category Detail Notes COVID-19 Screening Questions Have you had any new onset fever, chills, cough, congestion, sore throat, shortness of breath, muscle aches?: No Examination Category Sub-Category Detail Notes General Examination GENERAL APPEARANCE: pleasant , well nourished, well developed, in no acute distress, anxious man HEAD: atraumatic, normocep halic EYES: eomi, perrla, anicte desiree, conjugate EARS: normal NOSE: septum intact NECK/THYROID: no jugular venous di stention, no carotid bruit, thyroid normal HEART: no clicks, gallops, murmurs, or rubs, regular rhythm, S1, S2 normal, no s3, or vascular bruits LUNGS: clear to auscultatio n ABDOMEN: bowel sounds normal, no ascites, no organomegaly, no mass, Discomfort is reported on light palpation all quadrants but no abnormalities NEUROLOGIC: alert and oriented, cranial nerves 2-12 grossly intact, deep tendon reflexes 2+ symmetrical, motor strength normal upper and lower extremities, sensory exam intact SKIN: no suspicious lesion s, anicteric PERIPHERAL PULSES: normal BREASTS: no masses palpable b ilaterally MUSCULOSKELETAL: extremities unremark able, no clubbing, cyanosis or edema LYMPH NODES: no enlarged lymph no ashkan,spleen normal RECTAL EXAM: not examined PSYCH: alert, oriented ORAL CAVITY: normal, unremarkable Consultation Request Notes Referral Date Referring Provider Referred Provider Not ann 01/20/2025 Lazaro Jj [facility], Gastroenterology Evaluate and Treat Chronic Constipation
--- OUTSIDE RECORDS SUMMARY | 2025-01-29 05:00 | XMS_ITS ---
Author Organization Lazaro Jj III, MD Address [address] [place] [address] [place] [address] Care Team Providers Care Metal Mixer Name Role Phone Dr. Lazaro Jj III Primary Care Provider Allergies Allergen (clinical drug ingredient) Drug/Non Drug Allergy documented on EMR Reaction Allergy Type Onset Date Status No Known Drug Allergy Unknown Drug Allergy Active REASON FOR VISIT GERD, Chronic constipation, Benign prostatic hypertrophy Medications Medication SIG (Take, Route, Frequency, Duration) Notes Start Date End Date Status Metoclopramide HCl 10 MG 1 tablet before meals Orally Four times a day 08/09/2023 Active Omeprazole 20 MG 1 capsule Orally twice a 08/09/19 24 Active Fluticasone Propionate 50 MCG/ACT 1 spray in each nostril Nasally Once a day 04/22/2023 Active Social History Tobacco Use: Social History [...] Problem Status W/U Status Risk Notes Problem [id number] Overweight (E66.3) Active confirmed Although he has lost several pounds his body mass index is still 27. We discussed diet and nutrition at length today. Encounters Encounter Location Date Provider Diagnosis Lazaro Jj III, MD [address] [place] [address] [place] [address] 01/29/2025 Lazaro Jj Chronic GERD K21.9 ; Constipation K59.00 ; Generalized abdominal discomfort R10.84 ; Weight loss R63.4 ; BPH (benign prostatic hypertrophy) N40.0 and Overweight E66.3 Assessments Encounter Date Diagnosis (ICD Code) Assessment Notes Treatment Notes Treatment Clinical Notes 01/29/2025 Chronic GERD (ICD-10 - K21.9) He has been compliant with the omeprazole therapy in which will be continued indefinitely.He is taking 20 mg twice a day. 01/29/2025 Constipation (ICD-10 - K59.00) He is occasionally constipated but has had no hematochezia. 01/29/2025 Generalized abdominal discomfort (ICD-10 - R10.84) He seems stable today. If his symptoms do not resolve with omeprazole he may need upper endoscopy. 01/29/2025 Weight loss (ICD-10 - R63.4) He remains overweight, but he has lost 6 pounds since his last visit and more than that since the complaints began over the last few years. A reevaluation will be done. 01/29/2025 BPH (benign prostatic hypertrophy) (ICD-10 - N40.0) He continues to rise from sleep once a night to urinate. We have discussed lifestyle modifications he could make to reduce this. 01/29/2025 Overweight (ICD-10 - E66.3) Although he has lost several pounds his body mass index is still 27. We discussed diet and nutrition at length today. Plan Of Treatment Medication Medication Name Sig Start Date Stop Date Notes Metoclopramide HCl 10 MG 1 tablet before meals Orally Four times a day 08/09/2023 Omeprazole 20 MG 1 capsule Orally twice a 08/09/2023 Fluticasone Propionate 50 MCG/ACT 1 spra y in each nostril Nasally Once a day 04/22/2023 Next Appt Details Follow Up: 3 Weeks, Reason: OV Provider Name:Lazaro Jj , 06/28/2025 04:00:00 PM, [address] [place] [address] [address], [facility] [id number], Progress Notes * Talha MCCOY RDOB:1985 (39 yo M)Acc No.[id number]:01/29/2025 Patient: Talha VELASQUEZ Provider: Nely Jj MD :1985 A ge:39 Y S ex:Male Date:01/29/2025 Address:[address] [place] [address], [facility] [id number] Subjective: * Chief Complaints: * G ERDChronic constipationBenign prostatic hypertrophy * HPI: * : This telehealth visit took place over 15 minutes with the patient at home and me in my office. He gave consent for billing. We have reviewed his blood work which was essentially normal. He continues to be constipated and says he feels like he has a full rectum constantly. This is causing him some distress. We discussed using the MiraLAX twice a day. Follow-up office visit was arranged for him. He may need to go to gastroenterology. He sounds medically stable today and will call me if anything worsens.[facility] work done at [facility] January 26, 2025 showed white count 7.3 hematocrit 38.5 platelets 194 glucose 102 BUN 16 creatinine 0.9 for total cholesterol 185 triglycerides 183 HDL 42 LDL 107. Telehealth L ocation of provider rendering services: { ...} [address] [facility] [address] L ocation of patient: anders calderoness listed in demographics for today's visit P atient identification confirmed using: YADY Osei ame T elehealth method: T elephone only. Patient not visible to care provider. C onsent: P atient verbally consented to treatment, Patient verbally consented to billing insurance company, Patient informed of any privacy concerns related to method of visit T otal time spent with patient (mins) 1 5 * ROS: G eneral/Constitutional: pain o nly normal aches and pains. C hills d enies.?Fatigue a dmits. F ever d enies. E NT: Decreased hearing d enies. R espiratory: Cough d enies. C ardiovascular: Chest pain with exertion d enies. D yspnea on exertion?denies. S hortness of breath d enies. G astrointestinal: Constipation C ontinued complaints of having the rectum feel full despite MiraLAX therapy. D ecreased appetite d enies. D iarrhea d enies. H eartburn c ontrolled with medications. N ausea d enies. R ectal bleeding d enies. V omiting d enies. H ematology: bruising d enies. p etechiae d enies. S wollen glands n one have been noted. G enitourinary: Frequent urination o nce a night. M usculoskeletal: Muscle aches d enies. P ainful joints d enies. S ciatica d enies. W eakness d enies. S kin: Itching d enies. R fe d enies. S kin lesion(s)?denies. N eurologic: Difficulty speaking d enies. D izziness d enies.?Headache d enies. L ow back pain d enies. P sychiatric: Depressed mood d enies. * Medical History: * Surgical History: f racture right wrist, casted * Hospitalization/Major Diagno stic [...] T obacco Use: T obacco Use/Smoking P atient is a n onsmoker A dditional Findings: Tobacco Non-User A ggressive non-smoker Malaika sanchez was born in [place]. He is bilingual. He works 52 hours a week at [employer]. He is with a 12 year old daughter, iJl, who is healthy and well. He is [...] Known Drug Allergyno[Allergies Verified] Objective: * Vitals: Assessment: * Assessment: 1. C onstipation - K59.00 (Primary) N otes :He is occasionally constipated but has had no hematochezia. 2 . C hronic GERD - K21.9 N otes :He has been compliant with the omeprazole therapy in which will be continued indefinitely.He is taking 20 mg twice a day. 3 . G eneralized abdominal discomfort - R10.84 N otes :He seems stable today. If his symptoms do not resolve with omeprazole he may need upper endoscopy. 4 . W eight loss - R63.4 N otes :He remains overweight, but he has lost 6 pounds since his last visit and more than that since the complaints began over the last few years. A reevaluation will be done. 5 . B PH (benign prostatic hypertrophy) - N40.0 N otes :He continues to rise from sleep once a night to urinate. We have discussed lifestyle modifications he could make to reduce this. 6 . O verweight - E66.3 N otes :Although he has lost several pounds his body mass index is still 27. W e discussed diet and nutrition at length today. Plan: * Treatment: 2. O thers Continue Fluticasone Propionate Suspension, 50 MCG/ACT, 1 spray in each nostril, Nasally, Once a day. * Procedure Codes: 9 8012 SYNCH AUDIO-ONLY EST SF 10 * Preventive Medicine: Counseling: C are goal follow-up plan: Counseling for abnormal BMI given Y es Above Normal BMI Follow-up D ietary management education, guidance, and counseling, Dietary needs education, Exercise promotion: strength training, Exercise promotion: stretching, Feeding regime, Giving encouragement to exercise, Lifestyle education regarding diet, Nutrition / feeding management, Nutrition therapy, Prescribed activity/exercise education, Prescribed diet education, Prescribed dietary intake, Special diet education, Weight monitoring , Intervention, Order not done: Medical or Other reason not done * Follow Up: 3 Weeks (Reason: OV) * Images: * Sign off status: Completed true * Provider: Nely Jj MD Date: 0 01/29/2025 Generated for Israi debra/Alta/Ronnismitting on: 1 08/22/2024 09:50 AM EST History and Physical Notes * HPI (History of Present Illness) Category Sub-Category Detail Notes Telehealth Location of [facility] rendering services:: {...} [address] [facility] [address] [place], [place] [id number] Location of patient:: address listed in demographics for today's visit Patient identification confirmed using:: Name, Telehealth method:: Telephone only. Dasia ent not visible to care provider. Consent:: Patient verbally c onsented to treatment, Patient verbally consented to billing insurance company, Patient informed of any privacy concerns related to method of visit Total time spent with patient (mins): 15
--- OUTSIDE RECORDS SUMMARY | 2025-02-19 11:00 | XMS_ITS ---
Author Organization Lazaro Jj III, MD Address [address] [place] [address] [place] [address] Care Team Providers Care Bookstore Manager Name Role Phone Dr. Lazaro Jj III Primary Care Provider [phone] REASON FOR VISIT Chronic constipation, GERD, Benign prostatic hypertrophy, Weight loss Medications Medication SIG (Take, Route, Frequency, Duration) Notes Start Date End Date Status Metoclopramide HCl 10 MG 1 tablet before meals Orally Four times a day 08/09/2023 Active Omeprazole 20 MG 1 capsule Orally twice a 08/09/19 24 Active Metoclopramide HCl 10 MG 1 tablet before meals Orally Twice a day for 30 days 02/19/2025 Active Fluticasone Propionate 50 MCG/ACT 1 spray in each nostril Nasally Once a day 04/22/2023 Active Social History Tobacco Use: Social History Observation Description Date Details (start date - stop date) Never Smoker NA - NA Sex Assigned At : Social History Observation Description Sex Assigned At Male Tobacco Use/Smoking Question Answer Notes Patient is a nonsmoker Additional Findings: Tobacco Non-User Aggressive non-smoker Vital Signs Temperature 98.9 degrees Fahrenheit 02/20/20 25 Blood pressure systolic 114 mm Hg 02/20/20 25 Blood pressure diastolic 66 mm Hg 025 Heart Rate 77 /min 02/19/2025 Height 62 in 02/19/2025 Weight 152 lbs 02/19/2025 BMI 27.8 kg/m2 02/19/2025 Encounters Encounter Location Date Provider Diagnosis Lazaro Jj III, MD [address] [place] [address] [place] [address] 02/19/2025 Lazaro Jj Chronic GERD K21.9 ; Constipation K59.00 ; Generalized abdominal discomfort R10.84 ; BPH (benign prostatic hypertrophy) N40.0 and Overweight E66.3 Assessments Encounter Date Diagnosis (ICD Code) Assessment Notes Treatment Notes Treatment Clinical Notes 02/19/2025 Chronic GERD (ICD-10 - K21.9) He has been compliant with the omeprazole therapy in which will be continued indefinitely.He is taking 20 mg twice a day. 02/19/2025 Constipation (ICD-10 - K59.00) He is occasionally constipated but has had no hematochezia.I have added a stool softener and a trial of metoclopramide. He is going to see Dr. Pavon in the near future. 02/19/2025 Generalized abdominal discomfort (ICD-10 - R10.84) He seems stable today. If his symptoms do not resolve with omeprazole he may need upper endoscopy. 02/19/2025 BPH (benign prostatic hypertrophy) (ICD-10 - N40.0) He continues to rise from sleep once a night to urinate. We have discussed lifestyle modifications he could make to reduce this. 02/19/2025 Overweight (ICD-10 - E66.3) Although he has lost several pounds his body mass index is still 27. We discussed diet and nutrition at length today. Plan Of Treatment Medication Medication Name Sig Start Date Stop Date Notes Metoclopramide HCl 10 MG 1 tablet before meals Orally Four times a day 08/09/2023 Omeprazole 20 MG 1 capsule Orally twice a 08/09/2023 Metoclopramide HCl 10 MG 1 tablet before meals Orally Twice a day for 30 days 02/19/2025 Fluticasone Propionate 50 MCG/ACT 1 spra y in each nostril Nasally Once a day 04/22/2023 Next Appt Details Follow Up: 2 Weeks, Reason: Telehealth Provider Name:Lazaro Jj , 06/28/2025 04:00:00 PM, [address] [place] [address] ROSALINO MARADIAGA, [place], [phone], Progress Notes * Talha MCCOY RDOB:1985 (39 yo M)Acc No.[id number]:02/19/2025 Progress Notes Patient: Talha VELASQUEZ Provider: Nely Jj MD :1985 A ge:39 Y S ex:Male Date:02/19/2025 Address:[address] [place], [place] [address], [id number] Subjective: * Chief Complaints: * C hronic constipationGERDBenign prostatic hypertrophyWeight loss * HPI: C OVID-19 Screening: O n his first visit here in 2020 he weighed 134 pounds. He then gained weight reaching a maximum 160 pounds. On his last visit here and there is 157 pounds and now weighs 151 with a body mass index of 27. He continues to complain of feeling of constipation and inability to empty his rectum even after a bowel movement. He is quite concerned about this. He is using MiraLAX which is effective but causes loose stool. I have added on senna twice a day and instructed him on a high residue diet. He has an appointment in about 4 weeks in March [address] Pavon of the gastroenterology service. She has seen him before. Close follow-up was arranged.I have given him a trial of metoclopramide to see if this relieves some of his symptoms. We had a long discussion of the risks and benefits of this medication. Questions H ave you had any new onset fever, chills, cough, congestion, sore throat, shortness of breath, muscle aches? N o * ROS: G eneral/Constitutional: pain C hronic abdominaal discomfort. C hills d enies. F atigue a dmits. F ever d enies. E NT: Decreased hearing d enies. R espiratory: Cough d enies. C ardiovascular: Chest pain with exertion d enies. D yspnea on exertion?denies. S hortness of breath d enies. G astrointestinal: Constipation t hat is moderate. D ecreased appetite?denies. D iarrhea d enies. H eartburn d [...] pain d enies. P sychiatric: Depressed mood A nxious. * Medical History: * Surgical History: f [...] ggressive non-smoker Malaika sanchez was born in [place]. He is bilingual. He works 52 hours a week at [employer]. He is with a 12 year old daughter, Jil, who is healthy and well. He is a nonsmoker. * Medications: T akingFluticasone Propionate 50 MCG/ACT Suspension 1 spray in each nostril Nasally Once a day Metoclopramide HCl 10 MG Tablet 1 tablet before meals Orally Four times a day Omeprazole 20 MG Capsule Delayed Release 1 capsule Orally twice a Medication List reviewed and reconciled with the patientTaking Fluticasone Propionate 50 MCG/ACT Suspension 1 spray in each nostril Nasally Once a day Taking Metoclopramide HCl 10 MG Tablet 1 tablet before meals Orally Four times a day Taking Omeprazole 20 MG Capsule Delayed Release 1 capsule Orally twice a Medication List reviewed and reconciled with the patient Objective: * Vitals: H t: 62, Wt: 152, BMI:27.8, BP: 114/66, HR: 77, Temp: 98.9, Wt-k.95. * Examination: G eneral Examination: GENERAL APPEARANCE: p ivon, well nourished, well developed, in no acute distress, calm and relaxed: overweight: man. HEAD: a traumatic, normocephalic. EYES: e [...] normal, no ascites, no organomegaly, no mass, Left lower quaadrant nontender. RECTAL EXAM: n ot examined. MUSCULOSKELETAL: e xtremities unremarkable, no clubbing, cyanosis or edema. PERIPHERAL PULSES: n ormal. NEUROLOGIC: a lert and oriented, cranial nerves 2-12 grossly intact, deep tendon reflexes 2+ symmetrical, motor strength normal upper and lower extremities, sensory exam intact. PSYCH: a lert, oriented: anxious appearing. ? Assessment: * Assessment: 1. C onstipation - K59.00 (Primary) N otes :He is occasionally constipated but has had no hematochezia.I have added a stool softener and a trial of metoclopramide. He is going to see Dr. Pavon in the near future. 2 . C hronic GERD - K21.9 N otes :He has been compliant with the omeprazole therapy in which will be continued indefinitely.He is taking 20 mg twice a day. 3 . G eneralized abdominal discomfort - R10.84 N otes :He seems stable today. If his symptoms do not resolve with omeprazole he may need upper endoscopy. 4 . B PH (benign prostatic hypertrophy) - N40.0 N otes :He continues to rise from sleep once a night to urinate. We have discussed lifestyle modifications he could make to reduce this. 5 . O verweight - E66.3 N otes :Although he has lost several pounds his body mass index is still 27. We discussed diet and nutrition at length today. Plan: * Treatment: 2. O thers Continue Fluticasone Propionate Suspension, 50 MCG/ACT, 1 spray in each nostril, Nasally, Once a day. * Procedure Codes: * Preventive Medicine: Counseling: C are goal follow-up plan: Counseling for abnormal BMI given Y es Above Normal BMI Follow-up D ietary management education, guidance, and counseling * Follow Up: 2 Weeks (Reason: Telehealth) * Images: * Sign off status: Completed true * Provider: Nely Jj MD Date: 0 02/19/2025 Generated for Carolyn richardson/Alta/eTransmitting on: 08/22/2024 09:49 AM EST History and Physical Notes * HPI (History of Present Illness) Category Sub-Category Detail Notes COVID-19 Screening Questions Have you had any new onset fever, chills, cough, congestion, sore throat, shortness of breath, muscle aches?: No Examination Category Sub-Category Detail Notes General Examination GENERAL APPEARANCE: pleasant , well nourished, well developed, in no acute distress, calm and relaxed: overweight: man HEAD: atraumatic, normocep halic EYES: eomi, perrla, anicte desiree, conjugate EARS: normal NOSE: septum intact NECK/THYROID: no jugular venous di stention, no carotid bruit, thyroid normal HEART: no clicks, gallops, murmurs, or rubs, regular rhythm, S1, S2 normal, no s3, or vascular bruits LUNGS: clear to auscultatio n ABDOMEN: bowel sounds normal, no ascites, no organomegaly, no mass, Left lower quaadrant nontender NEUROLOGIC: alert and oriented, cranial nerves 2-12 grossly intact, deep tendon reflexes 2+ symmetrical, motor strength normal upper and lower extremities, sensory exam intact SKIN: no suspicious lesion s, anicteric PERIPHERAL PULSES: normal BREASTS: no masses palpable b ilaterally MUSCULOSKELETAL: extremities unremark able, no clubbing, cyanosis or edema LYMPH NODES: no enlarged lymph no ashkan,spleen normal RECTAL EXAM: not examined PSYCH: alert, oriented: anx ious appearing ORAL CAVITY: normal, unremarkable
--- OUTSIDE RECORDS SUMMARY | 2025-03-05 10:00 | XMS_ITS ---
Author Organization Lazaro Jj III, MD Address [address] [place] [address] [place] [address] Care Team Providers Care Lpn Rn Name Role Phone Dr. Lazaro Jj III Primary Care Provider Allergies Allergen (clinical drug ingredient) Drug/Non Drug Allergy documented on EMR Reaction Allergy Type Onset Date Status No Known Drug Allergy Unknown Drug Allergy Active REASON FOR VISIT Chronic constipation, GERD, Benign prostatic hypertrophy, Weight is Medications Medication SIG (Take, Route, Frequency, Duration) Notes Start Date End Date Status Fluticasone Propionate 50 MCG/ACT 1 spray in each nostril Nasally Once a day 04/22/2023 Active Metoclopramide HCl 10 MG 1 tablet before meals Orally Four times a day 08/09/2023 Active Omeprazole 20 MG 1 capsule Orally twice a 08/09/19 24 Active Metoclopramide HCl 10 MG 1 tablet before meals Orally Twice a day 02/19/2025 Active Social History Tobacco Use: Social History Observation Description Date Details (start date - stop date) Never Smoker NA - NA Sex Assigned At : Social History Observation Description Sex Assigned At Male Tobacco Use/Smoking Question Answer Notes Patient is a nonsmoker Additional Findings: Tobacco Non-User Aggressive non-smoker Vital Signs Height 62 in 03/05/2025 Weight 152 lbs 03/05/2025 BMI 27.8 kg/m2 03/05/2025 Encounters Encounter Location Date Provider Diagnosis Lazaro Jj III, MD [address] [place] [address] [place] [address] 03/05/2025 Lazaro Jj Chronic GERD K21.9 ; Constipation K59.00 ; Generalized abdominal discomfort R10.84 and BPH (benign prostatic hypertrophy) N40.0 Assessments Encounter Date Diagnosis (ICD Code) Assessment Notes Treatment Notes Treatment Clinical Notes 03/05/2025 Chronic GERD (ICD-10 - K21.9) He has been compliant with the omeprazole therapy in which will be continued indefinitely.He is taking 20 mg twice a day. 03/05/2025 Constipation (ICD-10 - K59.00) Stool softener made him worse and he had no response to metoclopramide. I think he needs a colonoscopy before calling is functional. 03/05/2025 Generalized abdominal discomfort (ICD-10 - R10.84) He seems stable today. If his symptoms do not resolve with omeprazole he may need upper endoscopy. 03/05/2025 BPH (benign prostatic hypertrophy) (ICD-10 - N40.0) He continues to rise from sleep once a night to urinate. We have discussed lifestyle modifications he could make to reduce this. Plan Of Treatment Medication Medication Name Sig Start Date Stop Date Notes Fluticasone Propionate 50 MCG/ACT 1 spra y in each nostril Nasally Once a day 04/22/2023 Metoclopramide HCl 10 MG 1 tablet before meals Orally Four times a day 08/09/2023 Omeprazole 20 MG 1 capsule Orally twice a 08/09/2023 Metoclopramide HCl 10 MG 1 tablet before meals Orally Twice a day 02/19/2025 Next Appt Details Follow Up: 2 Weeks, Reason: OV Provider Name:Lazaro Jj , 06/28/2025 04:00:00 PM, [address] [place] [address] [address] [place] [address], [place], [phone], Progress Notes * Talha MCCOY RDOB:1985 (39 yo M)Acc No.[id number]:03/05/2025 Patient: Talha VELASQUEZ Provider: Nely Jj MD :1985 A ge:39 Y S ex:Male Date:03/05/2025 Address:[address] [place] [address] [place] [id number] Subjective: * Chief Complaints: * C hronic constipationGERDBenign prostatic hypertrophyWeight is * HPI: * : his telehealth visit took place over 15 minutes with the patient at home and me in my office. He gave consent for billing. He continues to complain of a feeling of incomplete rectal emptying.On his last visit he was given senna but he says this made his abdomen hurt. He developed a sensation of being bloated with gas would not come out. Nonetheless, he is moving his bowels on a daily basis consuming food and fluid without discomfort. He has an appointment March 27 was his traffic control signaler, Dr. Leon,at [facility]. My hope is that they will do a colonoscopy. Telehealth L ocation of provider rendering services: { ...} [address] [facility] [address] L ocation of patient: anders alejandro listed in demographics for today's visit P [...] 1 5 * ROS: G eneral/Constitutional: pain r ectal discomfort. C hills d enies. F atigue a dmits. F ever d enies. E NT: Decreased hearing d enies. R espiratory: Cough d enies. C ardiovascular: Chest pain with exertion d enies. D yspnea on exertion?denies. S hortness of breath d enies. G astrointestinal: Constipation a ssociated with perianal discomfort. D ecreased appetite d enies. D iarrhea [...] pain d enies. P sychiatric: Depressed mood w hich is mild. * Medical History: * Surgical History: f [...] ggressive non-smoker Malaika sanchez was born in [place]. He is bilingual. He works 52 hours a week at [employer]. He is with a 12 year old daughter, Jil, who is healthy and well. He is a nonsmoker. * Medications: T akingFluticasone Propionate 50 MCG/ACT Suspension 1 spray in each nostril Nasally Once a day Metoclopramide HCl 10 MG Tablet 1 tablet before meals Orally Four times a day Omeprazole 20 MG Capsule Delayed Release 1 capsule Orally twice a Metoclopramide HCl 10 MG Tablet 1 tablet before meals Orally Twice a day Medication List reviewed and reconciled with the patientTaking Fluticasone Propionate 50 MCG/ACT Suspension 1 spray in each nostril Nasally Once a day Taking Metoclopramide HCl 10 MG Tablet 1 tablet before meals Orally Four times a day Taking Omeprazole 20 MG Capsule Delayed Release 1 capsule Orally twice a Taking Metoclopramide HCl 10 MG Tablet 1 tablet before meals Orally Twice a day Medication List reviewed and reconciled with the patient * Allergies: N o Known Drug Allergyno[Allergies Verified] Objective: * Vitals: H t: 62, Wt: 152, BMI:27.8, Ht-cm: 157.48, Wt-k.95. * P ast Orders: Lab:Prostate Specific Antige n * Collection Date 01/26/2025 01/23/2023 Collection Time 07:26 AM 07:58 AM Order Date 01/26/2025 01/23/2023 Prostate Specific Antigen 0.28 (Ref Range: <0.05-4.0 ng/mL) 0.23 (Ref Range: <0.05-4.0 ng/mL) * Lab:Comprehensive [place]. Pane l Fast * Collection Date 01/26/2025 01/23/2023 Collection Time 07:26 AM 07:58 AM Order Date 01/26/2025 01/23/2023 Sodium 139 (Ref Range: 135-145 mmol/L) 138 (Ref Range: 135-145 mmol/L) Bilirubin Total 0.5 (Ref Range: 0.0-1.0 mg/dL) 0.4 (Ref Range: 0.0-1.0 mg/dL) Aspartate Amino Transferase 40 H (Ref Range: 5-37 U/L) 34 (Ref Range: 5-37 U/L) Alanine Aminotransferase 50 H (Ref Range: 0-40 U/L) 48 H (Ref Range: 0-40 U/L) Total Protein 7.4 (Ref Range: 6.5-8.0 g/dL) 7.3 (Ref Range: 6.5-8.0 g/dL) Albumin Level 4.6 (Ref Range: 3.5-5.0 g/dL) 4.3 (Ref Range: 3.5-5.0 g/dL) Alkaline Phosphatase 64 (Ref Range: 39-117 U/L) 70 (Ref Range: 39-117 U/L) Potassium 4.0 (Ref Range: 3.3-5.1 mmol/L) 4.2 (Ref Range: 3.3-5.1 mmol/L) Chloride 103 (Ref Range: 96-108 mmol/L) 104 (Ref Range: 96-108 mmol/L) Carbon Dioxide 28 (Ref Range: 22-29 mmol/L) 28 (Ref Range: 22-29 mmol/L) Anion Gap 12 (Ref Range: 12-20) 10 L (Ref Range: 12-20) Blood Urea Nitrogen 16 (Ref Range: 9-16 mg/dL) 13 (Ref Range: 9-16 mg/dL) Creatinine 0.94 (Ref Range: 0.5-1.4 mg/dL) 0.86 (Ref Range: 0.5-1.4 mg/dL) Estimated Glomerular Filt Rate > 60 > 60 Glucose Fasting 102 H (Ref Range: 60-99 mg/dL) 100 H (Ref Range: 60-99 mg/dL) Calcium 9.1 (Ref Range: 8.4-10.2 mg/dL) 9.4 (Ref Range: 8.4-10.2 mg/dL) ???Lab:Erythrocyte Sedimentation Rate (Order Date - 01/26/2025) (Collection Date & Time - 01/26/2025 07:26 AM)?ValueReference Range?Erythrocyte Sedimentation [id number] - MM/HR * Lab:Complete Blood Count Aut o Diff * Collection Date 01/26/2025 10/17/2023 08/02/2023 Collection Time 07:26 AM 03:46 PM 05:00 PM Order Date 01/26/2025 10/17/2023 08/02/2023 White Blood Count 7.3 (Ref Range: 4.8-10.8 X10*3/uL) 6.8 (Ref Range: 4.8-10.8 X10*3/uL) 5.8 (Ref Range: 4.8-10.8 X10*3/uL) Red Blood Count 4.40 L (Ref Range: 4.60-5.80 X10*6/uL) 4.94 (Ref Range: 4.60-5.80 X10*6/uL) 4.59 L (Ref Range: 4.60-5.80 X10*6/uL) Hemoglobin 13.0 L (Ref Range: 14.0-18.0 g/dl) 14.6 (Ref Range: 14.0-18.0 g/dl) 13.8 L (Ref Range: 14.0-18.0 g/dl) Hematocrit 38.5 L (Ref Range: 42.0-52.0 %) 43.5 (Ref Range: 42.0-52.0 %) 39.8 L (Ref Range: 42.0-52.0 %) Mean Corpuscular Volume 87.5 (Ref Range: 80.0-98.0 fL) 88.1 (Ref Range: 80.0-98.0 fL) 86.7 (Ref Range: 80.0-98.0 fL) Mean Corpuscular Hemoglobin 29.5 (Ref Range: 27.0-33.0 pg) 29.6 (Ref Range: 27.0-33.0 pg) 30.1 (Ref Range: 27.0-33.0 pg) Mean Corpuscular HGB Conc 33.8 (Ref Range: 31.0-36.0 g/dl) 33.6 (Ref Range: 31.0-36.0 g/dl) 34.7 (Ref Range: 31.0-36.0 g/dl) Red Cell Distribution Width 11.9 (Ref Range: 11.0-16.0 %) 11.7 (Ref Range: 11.0-16.0 %) 11.9 (Ref Range: 11.0-16.0 %) Platelet Count 194 (Ref Range: 160-400 X10*3/uL) 203 (Ref Range: 160-400 X10*3/uL) 201 (Ref Range: 160-400 X10*3/uL) Mean Platelet Volume 11.2 (Ref Range: 9.4-12.4 fL) 11.2 (Ref Range: 9.4-12.4 fL) 11.3 (Ref Range: 9.4-12.4 fL) Neutrophils Percent Auto 55.7 (Ref Range: 45-73 %) 54.0 (Ref Range: 45-73 %) 51.1 (Ref Range: 45-73 %) Imm Gran Pct Auto 1.0 H (Ref Range: 0.0-0.4 %) 0.3 (Ref Range: 0.0-0.4 %) 0.2 (Ref Range: 0.0-0.4 %) Lymphocytes Percent Auto 30.8 (Ref Range: 20-40 %) 36.7 (Ref Range: 20-40 %) 38.5 (Ref Range: 20-40 %) Monocytes Percent Auto 8.2 (Ref Range: 2-11 %) 6.0 (Ref Range: 2-11 %) 8.0 (Ref Range: 2-11 %) Eosinophils Percent Auto 3.8 (Ref Range: 0-4 %) 2.7 (Ref Range: 0-4 %) 1.9 (Ref Range: 0-4 %) Basophils Percent Auto 0.5 (Ref Range: 0-2 %) 0.3 (Ref Range: 0-2 %) 0.3 (Ref Range: 0-2 %) NRBC Pct Auto 0.0 (Ref Range: 0.0-0.2 /100WBC) 0.0 (Ref Range: 0.0-0.2 /100WBC) 0.0 (Ref Range: 0.0-0.2 /100WBC) Neutrophils Absolute Auto 4.1 (Ref Range: 2.0-8.3 x10*3/uL) 3.7 (Ref Range: 2.0-8.3 x10*3/uL) 2.9 (Ref Range: 2.0-8.3 x10*3/uL) Imm Gran Abs Auto 0.07 H (Ref Range: 0.00-0.03 X10*3/uL) 0.02 (Ref Range: 0.00-0.03 X10*3/uL) 0.01 (Ref Range: 0.00-0.03 X10*3/uL) Lymphocytes Absolute Auto 2.3 (Ref Range: 1.2-4.9 X10*3/uL) 2.5 (Ref Range: 1.2-4.9 X10*3/uL) 2.2 (Ref Range: 1.2-4.9 X10*3/uL) Monocytes Absolute Auto 0.6 (Ref Range: 0.1-1.2 X10*3/uL) 0.4 (Ref Range: 0.1-1.2 X10*3/uL) 0.5 (Ref Range: 0.1-1.2 X10*3/uL) Eosinophils Absolute Auto 0.3 (Ref Range: 0.0-0.4 X10*3/uL) 0.2 (Ref Range: 0.0-0.4 X10*3/uL) 0.1 (Ref Range: 0.0-0.4 X10*3/uL) Basophils Absolute Auto 0.0 (Ref Range: 0.0-0.2 X10*3/uL) 0.0 (Ref Range: 0.0-0.2 X10*3/uL) 0.0 (Ref Range: 0.0-0.2 X10*3/uL) NRBC Abs Auto 0.000 (Ref Range: 0.0-0.012 X10*3/uL) 0.000 (Ref Range: 0.0-0.012 X10*3/uL) 0.000 (Ref Range: 0.0-0.012 X10*3/uL) * Lab:Lipid Panel * Collection Date 01/26/2025 01/23/2023 Collection Time 07:26 AM 07:58 AM Order Date 01/20/2025 01/23/2023 Triglycerides 183 H (Ref Range: <150 mg/dL) 126 (Ref Range: mg/dL) Cholesterol 185 (Ref Range: <200 mg/dL) 171 (Ref Range: mg/dL) LDL Cholesterol Calculated 107 H (Ref Range: <100 mg/dL) 104 (Ref Range: mg/dl) HDL Cholesterol 42 (Ref Range: >40 mg/dL) 42 (Ref Range: mg/dL) Clinical Info: Please fast for 12-1 4 hours prior to having this labwork done. You may have black coffee or tea with no milk or sugar. May have water,Please have this testing done as soon as possible,PLEASE FAX COMPLETED RESULTS TO [phone] Assessment: * Assessment: 1. C onstipation - K59.00 (Primary) N otes :Stool softener made him worse and he had no response to metoclopramide. I think he needs a colonoscopy before calling is functional. 2 . C hronic GERD - K21.9 [...] to reduce this. Plan: * Treatment: 2. O thers Continue [...] counseling * Follow Up: 2 Weeks (Reason: OV) * Images: * Sign off status: Completed true * Provider: Nely Jj MD Date: 0 03/05/2025 Generated for Carolyn richardson/Alta/Yumiko on: 1 08/22/2024 09:49 AM EST History and Physical Notes * HPI (History of Present Illness) Category Sub-Category Detail Notes Telehealth Location of [facility] rendering services:: {...} [address] [facility] [address] [place] [id number] Location of patient:: address listed in demographics [...]
--- OUTSIDE RECORDS SUMMARY | 2025-03-17 12:00 | XMS_ITS ---
Author Organization Lazaro Jj III, MD Address [address] [place] [address] [place] [address] Care Team Providers Care Assistant Operations Manager Name Role Phone Dr. Lazaro Jj III Primary Care Provider Allergies Allergen (clinical drug ingredient) Drug/Non Drug Allergy documented on EMR Reaction Allergy Type Onset Date Status No Known Drug Allergy Unknown Drug Allergy Active REASON FOR VISIT Follow up Medications Medication SIG (Take, Route, Frequency, Duration) Notes Start Date End Date Status Metoclopramide HCl 10 MG 1 tablet before meals Orally Twice a day 02/19/2025 Active Omeprazole 20 MG 1 capsule Orally [...] nonsmoker Additional Findings: Tobacco Non-User Aggressive non-smoker Encounters Encounter Location Date Provider Diagnosis Lazaro Jj III, MD [address] [place] [address] [place] [phone] 03/17/2025 Lazaro Jj Chronic GERD K21.9 Assessments Encounter Date Diagnosis (ICD Code) Assessment Notes Treatment Notes Treatment Clinical Notes 03/17/2025 Chronic GERD (ICD-10 - K21.9) He has been compliant with the omeprazole therapy in which will be continued indefinitely.He is taking 20 mg twice a day. Plan Of Treatment Medication Medication Name Sig Start Date Stop Date Notes Metoclopramide HCl 10 MG 1 tablet before meals Orally Twice a day 02/19/2025 Omeprazole 20 MG 1 capsule Orally twice a 08/09/2023 Fluticasone Propionate 50 MCG/ACT 1 spra y in each nostril Nasally Once a day 04/22/2023 Next Appt Details Provider Name:Lazaro Jj , 06/28/2025 04:00:00 PM, [address] [place] [address] DR, [facility] [address], [place], [address], Progress Notes * Talha MCCOY RDOB:1985 (39 yo M)Acc No.[id number]:03/17/2025 Progress Notes Patient: Talha VELASQUEZ Provider: Nely Jj MD :1985 A ge:39 Y S ex:Male Date:03/17/2025 Address:[address] [place], [place] [id number] Subjective: * Chief Complaints: * 1 . Follow up. * HPI: C OVID-19 Screening: Questions H ave you had any new onset fever, chills, cough, congestion, sore throat, shortness of breath, muscle aches? N o * ROS: G eneral/Constitutional: pain o nly normal aches and pains. C hills d enies.?Fatigue a dmits. F ever d enies. E NT: Decreased hearing d enies. R espiratory: Cough d enies. C ardiovascular: Chest pain with exertion d enies. D yspnea on exertion?denies. S hortness of breath d enies. G astrointestinal: Constipation d enies. D ecreased appetite d enies.?Diarrhea d enies. H eartburn d enies. N ausea d enies. R ectal bleeding?denies. V omiting d enies. H ematology: bruising [...] Depressed mood d enies. * Medical History: C hildhood ulcers, Heartburn, Dyspepsia, Fracture right wrist, covid19 infection September 2020. * Surgical History: f racture right wrist, casted . * Hospitalization/Major Diagno stic Procedure: D enies Past Hospitalization. * Family History: F ather: alive 50 [...] ggressive non-smoker Malaika sanchez was born in [place]. He is bilingual. He works 52 hours a week at [employer]. He is with a 12 year old daughter, Jil, who is healthy and well. He is a nonsmoker. * Medications: T aking Fluticasone Propionate 50 MCG/ACT Suspension 1 spray in each nostril Nasally Once a day , Taking Omeprazole 20 MG Capsule Delayed Release 1 capsule Orally twice a , Taking Metoclopramide HCl 10 MG Tablet 1 tablet before meals Orally Twice a day , Discontinued Metoclopramide HCl 10 MG Tablet 1 tablet before meals Orally Four times a day , Medication List reviewed and reconciled with the patient * Allergies: N o Known Drug Allergy. Objective: * Vitals: * Examination: G eneral Examination: GENERAL APPEARANCE: p leasant, well nourished, well developed, in no acute distress, calm and relaxed. HEAD: a traumatic, normocephalic. EYES: e cayden, [...] sounds normal, no ascites, no organomegaly, no mass. RECTAL EXAM: n ot examined. MUSCULOSKELETAL: e xtremities unremarkable, no clubbing, cyanosis or edema. PERIPHERAL PULSES: n ormal. NEUROLOGIC: a lert and oriented, cranial nerves 2-12 grossly intact, deep tendon reflexes 2+ symmetrical, motor strength normal upper and lower extremities, sensory exam intact. PSYCH: a lert, oriented. Assessment: * Assessment: 1. C hronic GERD - K21.9 N otes :He has been compliant with the omeprazole therapy in which will be continued indefinitely.He is taking 20 mg twice a day. Plan: * Treatment: 2. O thers Continue Fluticasone Propionate Suspension, 50 MCG/ACT, 1 spray in each nostril, Nasally, Once a day. * Images: * The named appointment provid er may or may not be the originator of this progress note, and it is not deemed complete until electronically signed by the appointment provider. Sign off status: Pending * Provider: Nely Jj MD Date: 0 03/17/2025 Generated for Carolyn richardson/Alta/Alokitting on: 1 08/22/2024 09:49 AM EST History and Physical Notes * HPI (History of Present Illness) Category Sub-Category Detail Notes COVID-19 Screening Questions Have you had any new onset fever, chills, cough, congestion, sore throat, shortness of breath, muscle aches?: No Examination Category Sub-Category Detail Notes General Examination GENERAL APPEARANCE: pleasant , well nourished, well developed, in no acute distress, calm and relaxed HEAD: atraumatic, normocep halic EYES: eomi, perrla, anicte desiree, conjugate EARS: normal NOSE: septum intact NECK/THYROID: no jugular venous di stention, no carotid bruit, thyroid normal HEART: no clicks, gallops, murmurs, or rubs, regular rhythm, S1, S2 normal, no s3, or vascular bruits LUNGS: clear to auscultatio n ABDOMEN: bowel sounds normal, no ascites, no organomegaly, no mass NEUROLOGIC: alert and oriented, cranial nerves 2-12 [...]
--- OUTSIDE RECORDS SUMMARY | 2025-04-06 10:30 | XMS_ITS ---
Author Organization Lazaro Jj III, MD Address [address] [place] [address] [place] [phone] Care Team Providers Care Anesthesiologists' Assistant Name Role Phone Dr. Lazaro Jj III [...] Date Provider Diagnosis Lazaro Jj III, MD [address] [place] [address] [place] [phone] 04/06/2025 Lazaro Jj Chronic GERD K21.9 Assessments Encounter Date Diagnosis (ICD Code) Assessment Notes Treatment Notes Treatment Clinical Notes 04/06/2025 Chronic GERD (ICD-10 - K21.9) He has [...] Provider Name:Lazaro Jj , 06/28/2025 04:00:00 PM, [address] [place] [address] DR, [facility], [address], [place], [address], Progress Notes * Talha MCCOY RDOB:1985 (39 yo M)Acc No.[id number]:04/06/2025 Progress Notes Patient: Talha VELASQUEZ Provider: Nely Jj MD :1985 A ge:39 Y S ex:Male Date:04/06/2025 Address:[address] [place], [place] [id number] Subjective: * Chief Complaints: * 1 . [...] T obacco Use: T obacco Use/Smoking P atmiek is a n onsmoker A dditional Findings: Tobacco Non-User A ggressive non-smoker Malaika sanchez was born in [place]. He is bilingual. He works 52 hours a week at [employer]. He is with a 12 year old [...] before meals Orally Twice a day , Medication List reviewed and [...] Pending * Provider: Nely Jj MD Date: Generated for Carolyn richardson/Alta/Alokitting on: 08/22/2024 09:49 AM EST History and [...]
--- NOTE | 2025-06-21 09:03 | MHC.OFFVIS ---
Vital Signs 06/21/25 09:07 Height 5 ft 3 in Weight 158 lb 11.725 oz BMI 28.1 BP 103/57 L Blood Pressure Location Lt brachial Position Sitting Pulse 67 Intake Visit Reasons: constipation Intake Note: Talha presents in the office as a follow up for constipation. CC: Has not taken linzess because he had the pains in the stomach. He states that it felt like the gas was trapped in his stomach and he would have a BM once a day. States that certain things he eats bothers him like steak and cheese does not digest. States that he was having a hard BM. He states he will have gurgles in the stomach as well. Manager Quality Improvement Required: No Allergies No Known Allergies (No Known Allergies*) Allergy (Verified 06/21/25 09:07) HPI Comments Details: 37 y.o M with chronic constipation who is here for follow up. 04/26/23: Pt reports that he has had GI issues since his childhood and reports having xrays done for his abd and was told he had ulcers and was started on a medication for a few months. Does not report any endoscopy for this. Now for about a year and a half has been having burning epigastric pain which starts first thing in the morning. Pain gets better with eating. Also associated with severe cramping and urge to defecate but feels constipated and has to strain significantly. Takes miralax once daily and is able to go twice a day but burning pain is still persistent. Occ N,V. Was trialed on Zantac, prilosec and now on Nexium x 4 weeks. Despite this has to take TUMS. No frequent NSAID use. Smokes marijuana 6 joints a day. No etOH. 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 Hep serologies neg 12/2022. No fam hx stomach ca or liver disease. EGD 08/22/23: Larynx:normal Esophagus: GE junction at 38 cm, diaphragm hiatus at 38 cm, bx taken from GEJ, distal esophagus Stomach: Patchy gastric erythema with small amount of residual food debris noted. Biopsies were obtained. Grade 2 flap valve on retroflexed examination of the cardia. 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 Stomach, biopsy: Antral-type mucosa with mild chronic inactive inflammation; no Helicobacter organisms seen. B. GE junction, biopsy: - Cardiofundic-type mucosa with mild chronic inactive inflammation; no intestinal metaplasia seen. - No squamous epithelium seen. C. Esophagus, distal, biopsy: Squamous epithelium within normal limits; no inflammation seen. 09/04/23: Here for post-EGD visit. 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 Reports improvement in cramping and bloating sx since EGD with pyloric dilation. Had stopped taking miralax and now constipation worse. Not getting better with just taking metamucil. 09/30/23: Req this appt as continues to have epigastric discomfort pam after eating with considerable borborygmi. BMs have started to fluctuate now has diarrhea whereas prev constipated. No blood in stool. Weight curve stable. 10/28/23: Patient here for follow-up after recent lab testing. Reviewed stool fecal calprotectin is slightly elevated. Will recommend a colonoscopy for further evaluation specially given change in bowel habits. Upper GI series and HIDA scan pending. 11/27/23: Mccrory (Dr Hebert) BBPS 11/06 (left colon not fully visualised) internal hemorrhoids 12/09/23: Here for follow-up after recent testing. Results of colonoscopy reviewed. He is aware that he is to resume colorectal cancer screening at 44. We also reviewed results of upper GI series and HIDA scan. MILD biliary hyperkinesia noted on HIDA scan. Otherwise feels very well. Reports since decreasing fatty/greasy food has noted resolution in abd discomfort and constipation. Takes miralax every day and helps regulate bowels. 03/24/25: Here for follow up. Was lost to follow up > 1 year. Main complaint is severe constipation despite miralax. Also notes significant abd distention and cramping wiht this. Tapering down methadone so does not think that is playing a role. Denies any other recreational opiate use. 06/21/25: The patient is a 39-year-old male presenting for management of chronic constipation and heartburn. At previous visit Linzess was prescribed in addition to miralax and dulcolax. However he reports that abd cramping and bloating worsened with linzess despite a regiular BM every day or every other day. He eventually self discontinued linzess after taking it for 4-6 weeks. He expresses a preference for MiraLax, stating it is gentle and does not cause stomach pain. He is also happy to report that he tapered off methadone about a week ago. He is reluctant to take fiber supplements, believing they will worsen his constipation because he does not drink a lot of water. The patient also complains of significant heartburn, which he notes is severe after eating foods like hot wings. He has been using [id number] omeprazole (Prilosec), taking two or three pills as needed approximately every other day, which he states provides some relief. Prior workup includes an endoscopy last year that showed no esophagitis and UGIS was neg for reflux as well. The patient also reports that stress worsens his symptoms. He reports that lactose free products, including Lactaid and Fair Life milk did not help. --- Pt was informed and consented to the use of ambient scribe for this encounter. --- [facility] Medical History Opiate dependence GERD (gastroesophageal reflux disease) Surgical History Hx of colonoscopy History of esophagogastroduodenoscopy (EGD) Hx of tooth extraction Surgical history unknown Social History Alcohol intake: current Alcohol intake frequency: does not drink Patient Tobacco Use Status: Never used Tobacco Substance Use Type: Marijuana Review of Systems Narrative Review of Systems - Gastrointestinal: Reports chronic constipation and lifelong stomach pains. - Reports severe heartburn, particularly after eating spicy foods. - Reports stomach upset with dairy products. - Psychiatric: Reports stress exacerbates his GI symptoms. Physical Exam Exam Exam: No apparent distress Nonicteric Abdomen soft, nondistended Alert and oriented x3, normal gait Vital Signs: Last Vital Signs Pulse 67 06/21/25 09:07 BP 103/57 L 06/21/25 09:07 BMI result Body Mass Index 28.1 Assessment & Plan Assessment & Plan (1) Constipation: Code(s): K59.00 - Constipation, unspecified Category: Medical (2) Change in bowel habit: Code(s): R19.4 - Change in bowel habit Category: Medical (3) Chronic heartburn: Code(s): R12 - Heartburn Plan 1. Chronic Constipation The patient's constipation is likely multifactorial, exacerbated by low fluid intake and lack of dietary fiber. Did not tolerate linzess well and not interested in trying a different secretagogue. He prefers continuing MiraLax, which he finds effective and gentle. Plan: - The prescription for Linzess was discontinued. - Miralax sent to pharmacy - pt advise to take it javier every other day. - A prescription for Benefiber was also sent. Pt urged to take at least a few times a week if not daily. - The patient was educated on the need to increase water intake to at least 8 cups per day to improve bowel function, especially when taking fiber. 2. Heartburn - The patient's symptoms are assoc with certain dietary triggers rather than GERD, given the negative findings on his prior endoscopy and X-ray. Advised that OTC antacid or H2 pippa is a better choice for occ heartburn. Plan: - Stop omeprazole, as it is not effective when taken as needed and is not indicated. - A prescription for famotidine was sent Follow-up in 4 months Medications: New wheat dextrin (Benefiber Clear Sugar Free(dextrin)) mix into at least 4 oz water or juice before administering 3 grams PO DAILY 28 ea 2RF 28 days famotidine 20 mg PO BEDTIME PRN 90 tabs 0RF heartburn Refilled polyethylene glycol 3350 (Miralax) 17 grams PO DAILY 238 grams 1RF polyethylene glycol 3350 (Miralax) 17 grams PO DAILY 238 grams 1RF Discontinued linaclotide (Linzess) Discontinued Reason: Patient no longer taking 72 mcg PO DAILY 90 days 90 caps 1RF simethicone (Gas Relief (simethicone)) Discontinued Reason: Patient no longer taking 125 mg PO TID PRN 90 tabs 0RF abdominal distention Coding Level of Care Code Est Pt Level 4 (56780) Diagnoses Constipation K59.00 Change in bowel habit R19.4 Chronic heartburn R12
[2025-06-21 09:07] VITALS: BP 103/57; PULSE 67; BMI 28.1
--- OUTSIDE RECORDS SUMMARY | 2025-06-21 09:49 | XMS_ITS | Patient Health Record ---
Author Organization Lazaro Jj III, MD Address [address] [place] [address] [address] [place] [phone] Care Team Providers Care School Curriculum Developer Name Role Phone Dr. Lazaro Jj III Primary Care Provider Allergies Allergen (clinical drug ingredient) Drug/Non Drug Allergy documented on EMR Reaction Allergy Type Onset Date Status No Known Drug Allergy Unknown Drug Allergy Active Results Component Value Reference Range Notes Lipid Panel Reviewed date:02/19/2025 03:59:41 PM Interpretation: Performing Lab:[address] [phone] Notes/Report: Triglycerides 183 <150 mg/dL Desirable Triglyceride: [...] low results in patients with liver disease. Complete Blood Count Auto Di ff Reviewed date:02/19/2025 03:59:41 PM Interpretation: Performing Lab:[facility], [address] [place] [phone] Notes/Report: White Blood Count 7.3 4.8-10.8 X10*3/uL Red Blood Count 4.40 4.60-5.80 X10*6/uL Hemoglobin 13.0 14.0-18.0 g/dl Hematocrit 38.5 42.0-52.0 % Mean Corpuscular Volume 87.5 80.0-98.0 fL Mean Corpuscular Hemoglobin 29.5 27.0-33.0 pg Mean Corpuscular HGB Conc 33.8 31.0-36.0 g/dl Red Cell Distribution Width 11.9 11.0-16.0 % Platelet Count 194 160-400 X10*3/uL Mean Platelet Volume 11.2 9.4-12.4 fL Neutrophils Percent Auto 55.7 45-73 % Imm Gran Pct Auto 1.0 0.0-0.4 % Lymphocytes Percent Auto 30.8 20-40 % Monocytes Percent Auto 8.2 2-11 % Eosinophils Percent Auto 3.8 0-4 % Basophils Percent Auto 0.5 0-2 % NRBC Pct Auto 0.0 0.0-0.2 /100WBC Neutrophils Absolute Auto 4.1 2.0-8.3 x10*3/u L Imm Gran Abs Auto 0.07 0.00-0.03 X10*3/uL Lymphocytes Absolute Auto 2.3 1.2-4.9 X10*3/u L Monocytes Absolute Auto 0.6 0.1-1.2 X10*3/uL Eosinophils Absolute Auto 0.3 0.0-0.4 X10*3/u L Basophils Absolute Auto 0.0 0.0-0.2 X10*3/uL NRBC Abs Auto 0.000 0.0-0.012 X10*3/uL Erythrocyte Sedimentation Ra te Reviewed date:02/19/2025 03:59:41 PM Interpretation: Performing Lab:[facility], [address] [place] [phone] Notes/Report: Erythrocyte Sedimentation Rate 9 0-15 MM/HR Patients with polycythemia and many hemoglobin abnormalities may have depressed sed rates whereas patients with anemia may have elevated sed rates. Comprehensive [place]. Panel Fa st Reviewed date:02/19/2025 03:59:41 PM Interpretation: Performing Lab:[facility], [address] [place] [phone] Notes/Report: Sodium 139 135-145 mmol/L Potassium 4.0 3.3-5.1 mmol/L Chloride 103 96-108 mmol/L Carbon Dioxide 28 22-29 mmol/L Anion Gap 12 12-20 Blood Urea Nitrogen 16 9-16 mg/dL Creatinine 0.94 0.5-1.4 mg/dL Estimated Glomerular Filt Rate > 60 Chronic Kidney Disease: Estimated GFR < 60 mL/min/1.73m2 Severe Kidney Disease: Estimated GFR < 15 mL/min/1.73m2 Glucose Fasting 102 60-99 mg/dL A fasting glucose from 100-125 mg/dl is considered impaired (pre-diabetes). Calcium 9.1 8.4-10.2 mg/dL Bilirubin Total 0.5 0.0-1.0 mg/dL Aspartate Amino Transferase 40 5-37 U/L Alanine Aminotransferase 50 0-40 U/L Total Protein 7.4 6.5-8.0 g/dL Albumin Level 4.6 3.5-5.0 g/dL Alkaline Phosphatase 64 39-117 U/L Prostate Specific Antigen Reviewed date:02/19/2025 03:59:41 PM Interpretation: Performing Lab:[facility], [address] [place] [phone] Notes/Report: Prostate Specific Antigen 0.28 <0.05-4.0 ng/mL PSA methodology: Langston Alinity i Chemiluminescent Microparticle Immunoassay (CMIA) Reason For Referral Reason Evaluate and Treat Chronic Constipation Diagnosis 1 Chronic GERD (K21.9) Diagnosis 2 Constipation (K59.00 ) Diagnosis 3 Generalized abdomina l discomfort (R10.84) Referral Organization Lazaro Jj III, MD Referring Provider First Name Lazaro Referring Provider Last Name Анна Referring Provider Speciality Internal M edicine Referred Organization [facility] Referred Provider [facility], Gastroenterology Referred Address [address] [place] [id number], Referred Provider Specialty Gastroentero logy General Notes Dipti Hernández 01/20/2025 04:31:32 PM > Patient is scheduled to see Dr. Pavon on 03/24/25 @ 1:45pm they will put in a message in to call patient if sooner comes available Referral Priority Urgent Referral Appointment Date 03/24/2025 Medications Medication SIG (Take, Route, Frequency, Duration) [...] ast year? No Points 0 Interpretation Negative Problems Problem Type SNOMED Code ICD Code Onset Dates Problem Status W/U Status Risk Notes Problem 352759548 Overweight (E66.3) Active confirmed Although he has lost several pounds his body mass index is still 27. We discussed diet and nutrition at length today. Problem Weight loss (915098448) Weight loss (R63.4) Active confirmed He remains overweight, but he has lost 6 pounds since his last visit and more than that since the complaints began over the last few years. A reevaluation will be done. Problem Benign prostatic hypertrophy without outflow obstruction (029590272) BPH (benign prostatic hypertrophy) (N40.0) Active confirmed He continues to rise from sleep once a night to urinate. We have discussed lifestyle modifications he could make to reduce this. Problem Constipation (75358007) Constipation (K59.00) Active confirmed Stool softener made him worse and he had no response to metoclopramide. I think he needs a colonoscopy before calling is functional. Problem 82223001 Acute non-recurrent maxillary sinusitis (J01.00) Active confirmed He has had no symptoms of sinus infections since his last course of antibiotics. Problem 132874791 Chronic GERD (K21.9) Active confirmed He has been compliant with the omeprazole therapy in which will be continued indefinitely.He is taking 20 mg twice a day. Problem 40689701 Generalized abdominal discomfort (R10.84) Active confirmed He seems stable today. If his symptoms do not resolve with omeprazole he may need upper endoscopy. Vital Signs Heart Rate 77 /min 02/19/2025 Temperature 98.9 degrees Fahrenheit 02/19/2025 Blood pressure diastolic 66 mm Hg 02/19/2025 Height 62 in 03/05/2025 Blood pressure systolic 114 mm Hg 02/19/2025 Weight 152 lbs 03/05/2025 BMI 27.8 kg/m2 03/05/2025 Encounters Encounter Location Date Provider Diagnosis Lazaro Jj III, MD [address] [place] [address] [place] [address] 01/20/2025 Lazaro Jj Chronic GERD K21.9 ; Weight loss R63.4 and BPH (benign prostatic hypertrophy) N40.0 Lazaro Jj III, MD [address] [place] [address] [place] [id number] 01/29/2025 Lazaro Jj Chronic GERD K21.9 ; Constipation K59.00 ; Generalized abdominal discomfort R10.84 ; Weight loss R63.4 ; BPH (benign prostatic hypertrophy) N40.0 and Overweight E66.3 Lazaro Jj III, MD [address] [place] [address] [place] [address] 02/19/2025 Lazaro Jj Chronic GERD K21.9 ; Constipation K59.00 ; Generalized abdominal discomfort R10.84 ; BPH (benign prostatic hypertrophy) N40.0 and Overweight E66.3 Lazaro Jj III, MD [address] [place] [address] [place] [address] 03/05/2025 Lazaro Jj Chronic GERD K21.9 ; Constipation K59.00 ; Generalized abdominal discomfort R10.84 and BPH (benign prostatic hypertrophy) N40.0 Lazaro Jj III, MD [address] [place] [address] [place] [address] 12/24/2024 Lazaro Jj Assessments Encounter Date Diagnosis (ICD Code) Assessment Notes Treatment Notes Treatment Clinical Notes 01/20/2025 Weight loss (ICD-10 - R63.4) He remains overweight, but he has lost 6 pounds since his last visit and more than that since the complaints began over the last few years. A reevaluation will be done. 01/20/2025 Chronic GERD (ICD-10 - K21.9) He has been compliant with the omeprazole therapy in which will be continued indefinitely.He is taking 20 mg twice a day. 01/29/2025 Constipation (ICD-10 - K59.00) He is occasionally constipated but has had no hematochezia. 01/29/2025 Chronic GERD (ICD-10 - K21.9) He has been compliant with the omeprazole therapy in which will be continued indefinitely.He is taking 20 mg twice a day. 02/19/2025 Constipation (ICD-10 - K59.00) He is occasionally constipated but has had no hematochezia.I have added a stool softener and a trial of metoclopramide. He is going to see Dr. Pavon in the near future. 02/19/2025 Chronic GERD (ICD-10 - K21.9) He has been compliant with the omeprazole therapy in which will be continued indefinitely.He is taking 20 mg twice a day. 03/05/2025 Constipation (ICD-10 - K59.00) Stool softener made him worse and he had no response to metoclopramide. I think he needs a colonoscopy before calling is functional. 03/05/2025 Chronic GERD (ICD-10 - K21.9) He has been compliant with the omeprazole therapy in which will be continued indefinitely.He is taking 20 mg twice a day. 01/20/2025 BPH (benign prostatic hypertrophy) (ICD-10 - N40.0) He continues to rise from sleep once a night to urinate. We have discussed lifestyle modifications he could make to reduce this. 01/29/2025 Generalized abdominal discomfort (ICD-10 - R10.84) He seems stable today. If his symptoms do not resolve with omeprazole he may need upper endoscopy. 02/19/2025 Generalized abdominal discomfort (ICD-10 - R10.84) He seems stable today. If his symptoms do not resolve with omeprazole he may need upper endoscopy. 03/05/2025 Generalized abdominal discomfort (ICD-10 - R10.84) He seems stable today. If his symptoms do not resolve with omeprazole he may need upper endoscopy. 01/29/2025 Weight loss (ICD-10 - R63.4) He remains overweight, but he has lost 6 pounds since his last visit and more than that since the complaints began over the last few years. A reevaluation will be done. 02/19/2025 BPH (benign prostatic hypertrophy) (ICD-10 - N40.0) He continues to rise from sleep once a night to urinate. We have discussed lifestyle modifications he could make to reduce this. 03/05/2025 BPH (benign prostatic hypertrophy) (ICD-10 - N40.0) He continues to rise from sleep once a night to urinate. We have discussed lifestyle modifications he could make to reduce this. 01/29/2025 BPH (benign prostatic hypertrophy) (ICD-10 - N40.0) He continues to rise from sleep once a night to urinate. We have discussed lifestyle modifications he could make to reduce this. 02/19/2025 Overweight (ICD-10 - E66.3) Although he has lost several pounds his body mass index is still 27. We discussed diet and nutrition at length today. 01/29/2025 Overweight (ICD-10 - E66.3) Although he has lost several pounds his body mass index is still 27. We discussed diet and nutrition at length today. Plan Of Treatment Pending Test Test Name Order Date PROFILE, FASTING (COMPREHENSIVE METABOLI C) 01/20/2025 PROFILE, FASTING (COMPREHENSIVE METABOLI C) 11/29/2022 PROFILE, FASTING (COMPREHENSIVE METABOLI C) 01/27/2021 PROFILE, RANDOM (COMPREHENSIVE METABOLIC ) 11/08/2020 LIPID PANEL 11/29/2022 LIPID PANEL 01/27/2021 LIPID PANEL 11/08/2020 FREE T4 (FT4) 01/27/2021 TSH (THYROID STIMULATING HORMONE) 2020 PSA, TOTAL 11/29/2022 PSA, TOTAL 01/20/2025 CBC w DIFF 11/29/2022 CBC w DIFF 11/08/2020 CBC w DIFF 01/27/2021 CBC w DIFF 01/20/2025 SED RATE (ESR) 11/08/2020 SED RATE (ESR) 01/20/2025 HELICOBACTER PYLORI IGG (H PYLORI IGG) 0 08/09/2023 CLOSTRIDIUM DIFF TOXIN A&B (C DIFF) 03/2024 OVA & PARASITES (O&P) 08/09/2023 Stool Culture 08/09/2023 Next Appt Details Provider Name:Lazaro Jj , 06/28/2025 04:00:00 PM, [address] [place] [address] [address], [address], [place], [address], Insurance Providers Payer Name Payer Address Payer Phone Subscriber Number Group Number Insured Name Patient Relationship to Insured Coverage Start Date Coverage End Date [facility] [address] [facility] [place] [phone] [id number] Talha Mccoy Self - patient is the insured Medical (General) History Medical History History ICD Code childhood ulcers heartburn dyspepsia fracture right wrist covid19 infection September 2020 Surgical History Surgery Date(Month/Year) fracture right wrist, casted
== END 2025-06-21 09:36 | disposition home or self-care (01) ==
LOC: HO.HGI 09:01
PROVIDERS: PCP Internal Medicine Medical Oncology; Visit Provider Internal Medicine
DX: K59.00 Constipation, unspecified (principal); R19.4 Change in bowel habit; R12 Heartburn
CPT/HCPCS: 99214